=== PATIENT | male | born 1960 | race Two or more races ===

== ENCOUNTER 2019-08-19 11:07 | Inpatient (IN) | payer MEDICAID ==
[~2019-08-19] VITALS: Ht 167.6 cm; Wt 68.0 kg
--- NOTE | 2019-08-19 11:18 | NUR ---
"[id number], FROM HOME "C/O WORSENING BACK PAIN" PT AAOX4, -SOB. NAD NOTED, VSS, PENDING M,D EVAL
[2019-08-19] MEDS ORDERED: KETOROLAC TROMETHAMINE INJ 30 MG/ML VIAL IV ONE (11:30)
[2019-08-19] MEDS ORDERED: IV NS 0.9% 1,000 ML BAG IV ONE (11:30)
[2019-08-19 11:41] LABS: BASOPHILS # (AUTO) 0.1 /CMM (0.0-0.2); BASOPHILS % (AUTO) 0.5 % (0.0-2.0); EOSINOPHILS % (AUTO) 0.2 % (0.0-6.0); HEMATOCRIT 40 % (39-51); HEMOGLOBIN 12.9 g/dL (13.5-17.5); LYMPHOCYTES # (AUTO) 1.1 /CMM (0.8-4.8); LYMPHOCYTES % (AUTO) 6.9 % (20.0-44.0); MEAN CORPUSCULAR HGB CONC 33 g/dl (31.0-36.0); MEAN CORPUSCULAR VOLUME 86 fL (80-96); MONOCYTES # (AUTO) 1.6 /CMM (0.1-1.30); MONOCYTES % (AUTO) 9.9 % (2.0-12.0); NEUTROPHILS # (AUTO) 13.6 /CMM (1.8-8.9); NEUTROPHILS % (AUTO) 82.5 % (43.0-81.0); PLATELET COUNT (AUTO) 241 /CMM (150-450); RED BLOOD CELL COUNT(AUTO) 4.57 MIL/uL (4.5-6.0); WHITE BLOOD COUNT (AUTO) 16.4 K/uL (4.3-11.0)
[2019-08-19 11:47] LABS: CALCIUM, SERUM 9.1 mg/dL (8.5-10.1); CREATININE 1.3 mg/dL (0.6-1.3); POTASSIUM 4.6 mmol/L (3.5-5.1)
[2019-08-19] MEDS ORDERED: KETOROLAC TROMETHAMINE 15 MG/ML VIAL ONE (11:49)
[2019-08-19 11:54] LABS: ALBUMIN 3.1 g/dL (3.4-5.0); BILIRUBIN,DIRECT 0.1 mg/dL (0.0-0.2); BILIRUBIN,TOTAL 0.7 mg/dL (0.2-1.0); TOTAL PROTEIN, SERUM 7.2 g/dL (6.4-8.2)
[2019-08-19] MEDS ORDERED: HYDROMORPHONE 1 MG/1 ML DISP.SYRIN ONE (13:12)
[2019-08-19] MEDS ORDERED: ONDANSETRON HCL/PF 4 MG/2 ML VIAL ONE (13:12)
[2019-08-19] MEDS ORDERED: HYDROMORPHONE INJ 2 MG/ML DISP.SYRIN IV ONE (13:30)
[2019-08-19] MEDS ORDERED: ONDANSETRON HCL/PF 4 MG/2 ML VIAL IVP ONE (13:30)
[2019-08-19] MEDS ORDERED: AMLO5TAB9 PO (14:59)
[2019-08-19] MEDS ORDERED: ALLO100T PO (14:59)
[2019-08-19] MEDS ORDERED: LOSA25TA27 PO (14:59)
[2019-08-19] MEDS ORDERED: FERR325T23 PO (14:59)
[2019-08-19] MEDS ORDERED: DIAZEPAM 10 MG TABLET PO ONE (15:00)
--- NOTE | 2019-08-19 15:24 | NUR ---
EPIC PAGED FOR ADMISSION.
--- NOTE | 2019-08-19 15:35 | NUR ---
CALLED FOR BED. WAITING SUPERCALENDER OPERATOR BACK.
--- NOTE | 2019-08-19 15:39 | NUR ---
MD TO MD IN PROGRESS.
[2019-08-19] MEDS ORDERED: DIAZEPAM 5 MG TABLET ONE (15:43)
--- NOTE | 2019-08-19 15:43 | NUR ---
BED ASSIGN 117-1
--- NOTE | 2019-08-19 15:58 | NUR ---
REPORT GIVEN TO ASTON DALTON FOR VIVIANE PT WILL BE TRANSPORTED TO 1ST FLOOR
--- NOTE | 2019-08-19 16:00 | NUR ---
MS RN NOTES ADMISSION RECEIVED PT FROM ER DEPARTMENT KELLI DALTON WITH DIAGNOSIS OF INTRACTABLE BACK PAIN. A/OX4 ROOM AIR 99%. NO SIGNS OF SOB AT THIS MOMENT. RAC #20 IV SITE PATENT FLUSHED WELL. URINE SAMPLE SENT TO [facility] AT THE ADMISSION. PT IS UNABLE TO WALK AND ABLE TO TURN IN BED WITH DISCOMFORT. VITALS ARE 121/67 HR 89 RR20 TEMP 97.5. BED AT THE LOWEST POSITION LOCKED. CALL LIGHT WITHIN REACH.
[2019-08-19 16:05] VITALS: BP 121/67
[2019-08-19] MEDS ORDERED: ONDANSETRON HCL/PF 4 MG/2 ML VIAL IVP PRN (17:00)
[2019-08-19] MEDS ORDERED: MAG HYDROX/AL HYDROX/SIMETH 30 ML UDC PO PRN (17:00)
[2019-08-19] MEDS ORDERED: MAGNESIUM HYDROXIDE 30 ML UDC PO PRN (17:00)
[2019-08-19] MEDS ORDERED: ZOLPIDEM TARTRATE 5 MG TABLET PO PRN (17:00)
[2019-08-19] MEDS ORDERED: Z GUARD REMEDY 2 OZ OINT TP PRN (17:00)
[2019-08-19] MEDS: HYDROMORPHONE INJ 2 MG/ML DISP.SYRIN IV PRN ×2 (18:53→22:15)
--- NOTE | 2019-08-19 19:15 | NUR ---
MS RN NOTES PT IN BED SLEEPING ABLE TO AROUSE AFTER NAME CALLED. ALL NEEDS ATTENDED PAIN MANAGEMENT IMPLEMENTED. NO SIGNS OF DISCOMFORT OR SOB NOTED AT THIS TIME. BED LOCKED AT THE LOWEST POSITION CALL LIGHT WITHIN REACH. IV SITE PATENT AND FLUSHED. ENDORSED TO HEARING THERAPIST NURSE FOR VIVIANE.
--- NOTE | 2019-08-19 22:45 | NUR ---
RECIEVED ASLEEP IN BED RESP EVEN AND UNLBORED. BED IN LOW POSITION BRAKES TITLE DEPARTMENT MANAGER ;IGHT WITHIN REACH
[2019-08-20 00:47] VITALS: BP 131/78
[2019-08-20] MEDS: HYDROMORPHONE INJ 2 MG/ML DISP.SYRIN IV PRN ×4 (01:45→18:32)
[2019-08-20 04:35] VITALS: BP 107/66
[2019-08-20 04:50] LABS: APPEARANCE,URINE Clear (CLEAR); BILIRUBIN,URINE Negative (NEGATIVE); BLOOD, URINE Negative Ery/uL (NEGATIVE); COLOR,URINE Yellow (YELLOW); KETONES,URINE Negative (NEGATIVE); LEUKOCYTE ESTERASE ,URINE Negative (NEGATIVE); NITRITE, URINE Negative (NEGATIVE); PROTEIN,URINE Negative (NEGATIVE); UGLUCOSE Negative (NEGATIVE); UROBILINOGEN,URINE 0.2 EU/dL (0.2)
--- NOTE | 2019-08-20 05:32 | NUR ---
ENDING NOTES: NOTED PAIN GETTING IN AND OUT OF BED HE STATES THE LOWER BACK PAIN IS A PAIN OF 10. MEDICATED X3 THIS 12 HOURS. LAST ODSE 0530. VOIDS IN THE URINAL. RESP EVEN AND UNLABORED. MOVEMENT AND SENSATION IN THE FEET
[2019-08-20 07:23] LABS: BASOPHILS # (AUTO) 0.1 /CMM (0.0-0.2); BASOPHILS % (AUTO) 0.3 % (0.0-2.0); EOSINOPHILS % (AUTO) 0.2 % (0.0-6.0); HEMATOCRIT 37 % (39-51); HEMOGLOBIN 11.9 g/dL (13.5-17.5); LYMPHOCYTES # (AUTO) 1.1 /CMM (0.8-4.8); LYMPHOCYTES % (AUTO) 5.8 % (20.0-44.0); MEAN CORPUSCULAR HGB CONC 32 g/dl (31.0-36.0); MEAN CORPUSCULAR VOLUME 87 fL (80-96); MONOCYTES # (AUTO) 1.7 /CMM (0.1-1.30); MONOCYTES % (AUTO) 9.3 % (2.0-12.0); NEUTROPHILS # (AUTO) 15.6 /CMM (1.8-8.9); NEUTROPHILS % (AUTO) 84.4 % (43.0-81.0); PLATELET COUNT (AUTO) 223 /CMM (150-450); RED BLOOD CELL COUNT(AUTO) 4.24 MIL/uL (4.5-6.0); WHITE BLOOD COUNT (AUTO) 18.5 K/uL (4.3-11.0)
--- NOTE | 2019-08-20 07:32 | NUR ---
MS RN OPENING NOTES Patient received on room air, no sob noted, remains a/o x4. Patient comfortable on his bed at this time with pain under control. Patient states that he has pain on his backside but is tolerable with pain medication. R AC 20 g saline lock at this time. Bed at the lowest setting, call light within reach, side rails up x2.
[2019-08-20 07:40] LABS: ALBUMIN 2.7 g/dL (3.4-5.0); BILIRUBIN,TOTAL 1.1 mg/dL (0.2-1.0); CALCIUM, SERUM 8.6 mg/dL (8.5-10.1); CREATININE 1.2 mg/dL (0.6-1.3); MAGNESIUM 1.9 mg/dL (1.8-2.4); PHOSPHORUS 4.1 mg/dL (2.5-4.9); POTASSIUM 4.6 mmol/L (3.5-5.1); TOTAL PROTEIN, SERUM 6.7 g/dL (6.4-8.2)
[2019-08-20 07:46] LABS: THYROID STIMULATING HORMONE 1.908 uIU/mL (0.358-3.74)
[2019-08-20] MEDS: LOSARTAN POTASSIUM 25 MG TABLET PO SCH (08:20)
[2019-08-20] MEDS: AMLODIPINE BESYLATE 5 MG TABLET PO SCH (08:20)
[2019-08-20] MEDS: FERROUS SULFATE (325 MG) 325 MG/TAB TABLET PO SCH (08:20)
[2019-08-20] MEDS: ALLOPURINOL 100 MG TABLET PO SCH (08:20)
--- NOTE | 2019-08-20 10:15 | NUR ---
RN NOTES Patient taken to MRI at this time
--- NOTE | 2019-08-20 11:40 | NUR ---
RN MS NOTES Patient back from the MRI scan
--- NOTE | 2019-08-20 12:35 | NUR ---
RN NOTES Patient with 100.3 fever, offered patient medications but patient insisted that he does not taking anything at this time. Will offer again later.
--- NOTE | 2019-08-20 12:45 | NUR ---
Social service consult requested by Dr. Meadows due to pt. having no family in [place] to care for him after D/C. Pt. is a 58 year old male who was admitted to [facility] for intractable back pain. LORI and yolande Nelson met with the pt. bedside. Pt. was sitting upright on the bed and appeared to be uncomfortable and in pain. Pt. states he lives with his friend Cheryl at [address] in [place]. [place]. Pt. states it is a studio apartment. Pt. states, his friend helps him out but has been working a lot lately. Pt. states he needs some assistance at home due to being a fall risk. Pt. denies any drug, alcohol and cigarette use. Pt. states he has no family. Pt. to be assessed by PT prior to discharge. Pt. states he will be going back to the aforementioned address when medically cleared. Pt. might need transportation back home. No other social service needs are requested at this time. SW is available, if needed.
[2019-08-20] MEDS: ACETAMINOPHEN 325 MG TABLET PO PRN (15:50)
[2019-08-20 16:00] VITALS: BP 92/58
--- NOTE | 2019-08-20 18:55 | NUR ---
RN MS CLOSING NOTES Patient remains on room air, no sob noted, a/o x4. Patients pain relieved by dilaudid at this time. Back pain around 6-8. Urinal present bedside, R AC 20 g, SL. Bed at the lowest setting, call light within reach, side rails up x2. Will give report to RN bedside for VIVIANE.
--- NOTE | 2019-08-20 19:45 | NUR ---
RN NOTES RECEIVED [id number] AWAKE IN BED, ALERT ORIENTEDX4, COMPLAINTS OF BACK P0AIN 6/10 P0AIN SCALE AT THIS TIME, LAST DILAUDID GIVEN AT 1832 BY AM NURSE ASHLEY, ENCOURAGED PATIENT TO TURN SIDE TO SIDE TOLERATED TO ALLEVIATE PAIN, SAFETY MEASURES IN PLACE, CALL LIGHT WITHIN EASY REACH, BED IN LOW LOCKED POSITION, IV ACCESS ON HIS RIGHT AC G#20 INTACT AND PATENT, URINAL IS AT BEDSIDE, WILL MONITOR ACCORDINGLY.
[2019-08-20 20:25] VITALS: BP 78/42
[2019-08-20] MEDS ORDERED: IV NS 0.9% 1,000 ML IV PRN (20:30)
--- NOTE | 2019-08-20 20:31 | NUR ---
RN NOTES CALLED AND SPOKE TO TEXTILE SUPERVISOR LEVI BUCK, INFORMED HER REGARDING PATIENT'S LOW BP 76/44MMHG - 78/42MMHG, HR 89/MIN, RR20/MIN, TEMP 98.4F. [id number] HAD EPISODE OF TEMP0 100.3F AT 1235, NP0 LEVI ORDERED BLOOD CULTURE, LACTIC ACID, IV NS 1 LITER BOLUS, AND COMPUTED TOMOGRAPHY CHEST ABDOMEN PELVIS WITH CONTRAST, NOTED AND CARRIED OUT. WILL CONTINUE TO MONITOR ACCORDINGLY.
[2019-08-20 21:45] VITALS: BP 95/48
--- NOTE | 2019-08-20 21:45 | NUR ---
RN NOTES I LITER OF IV NS BOLUS DONE. RECHECKED BP 95/48MMHG HR 85/MIN. DENIES ANY PAIN OR DIZZINESS AT THIS TIME, URINAL AT BEDSIDE, SAFETY MEASURES IN P0LACE, WILL CONTINUE TO MONITOR ACCORDINGLY.
[2019-08-20 23:58] VITALS: BP 111/76
--- NOTE | 2019-08-20 23:58 | NUR ---
RN NOTES RECHECKED BP 111/76MMHG, TEMP0 98.4F HR106 RR 20/MIN. SAFETY MEASURES IN PLACE. ALL NEEDS ATTENDED.
[2019-08-21] VITALS: BP 105/47
[2019-08-21] MEDS: ACETAMINOPHEN 325 MG TABLET PO PRN ×3 (00:24→19:32)
[2019-08-21 00:29] VITALS: BP 105/47
--- NOTE | 2019-08-21 00:32 | NUR ---
RN NOTES RECHECKED BP 105/47 MMHG, HR100/MIN, TEMP0 99.0F, C/O BACK PAIN, 5/10 PAIN SCALE. PROVIDED COMFORT, SAFETY MEASURES IN PLACED, WILL MONITOR ACCORDINGLY.
[2019-08-21 04:56] VITALS: BP 84/47
--- NOTE | 2019-08-21 06:48 | NUR ---
RN NOTES ALL NEEDS ATTENDED AND MET, ABLE TO REST AND SLEPT AT INTERVALS, SLEEPING COMFORTABLY AT THIS TIME. CALL LIGHT WITHIN EASY REACH, SAFETY MEASURES IN PLACE,WILL ENDORSE TO AM NURSE FOR CONTINUITY OF CARE.
[2019-08-21 08:00] VITALS: BP 119/75
[2019-08-21] MEDS: FERROUS SULFATE (325 MG) 325 MG/TAB TABLET PO SCH (08:18)
[2019-08-21] MEDS: ALLOPURINOL 100 MG TABLET PO SCH (08:18)
[2019-08-21] MEDS: AMLODIPINE BESYLATE 5 MG TABLET PO SCH (08:19)
[2019-08-21] MEDS: LOSARTAN POTASSIUM 25 MG TABLET PO SCH (08:19)
[2019-08-21] MEDS ORDERED: IV NS 0.9% 250 ML IV ONE (09:29)
[2019-08-21] MEDS ORDERED: CT SWABBABLE VALVE TRANS SET 1 EA INFUS.SET MC ONE (09:29)
[2019-08-21] MEDS ORDERED: IOHEXOL-300 100 ML VIAL IV ONE (09:29)
[2019-08-21 09:48] LABS: BASOPHILS % (AUTO) 0.1 % (0.0-2.0); EOSINOPHILS % (AUTO) 0.1 % (0.0-6.0); HEMATOCRIT 35 % (39-51); HEMOGLOBIN 11.4 g/dL (13.5-17.5); LYMPHOCYTES # (AUTO) 0.5 /CMM (0.8-4.8); LYMPHOCYTES % (AUTO) 2.6 % (20.0-44.0); MEAN CORPUSCULAR HGB CONC 33 g/dl (31.0-36.0); MEAN CORPUSCULAR VOLUME 85 fL (80-96); MONOCYTES # (AUTO) 1.6 /CMM (0.1-1.30); MONOCYTES % (AUTO) 7.6 % (2.0-12.0); NEUTROPHILS # (AUTO) 18.4 /CMM (1.8-8.9); NEUTROPHILS % (AUTO) 89.6 % (43.0-81.0); PLATELET COUNT (AUTO) 207 /CMM (150-450); RED BLOOD CELL COUNT(AUTO) 4.05 MIL/uL (4.5-6.0); WHITE BLOOD COUNT (AUTO) 20.6 K/uL (4.3-11.0)
[2019-08-21] MEDS ORDERED: FEE PK DOSING 1 MIN EA MC ONE (10:09)
--- NOTE | 2019-08-21 11:41 | NUR ---
DR. HASTINGS AWARE OF CT W/ CONTRAST DONE TODAY. "MRI CONTRAST IS NOT THE SAME"
[2019-08-21] MEDS: VANCOMYCIN 1 GM in IV D5W 250 ML IV SCH ×2 (11:52→22:50)
[2019-08-21] MEDS: HYDROCODONE/APAP 5/325MG 1 EACH TABLET PO PRN (11:55)
[2019-08-21] MEDS: CEFEPIME 2 GM in IV D5W 100 ML IV SCH ×2 (13:28→19:32)
[2019-08-21 16:00] VITALS: BP 112/63
[2019-08-21] MEDS ORDERED: IV NS 0.9% 1,000 ML BAG IV PRN (16:00)
[2019-08-21] MEDS ORDERED: GADOTERIDOL 279.3 MG/ML VIAL IV ONE (16:52)
[2019-08-21] MEDS: HYDROMORPHONE INJ 2 MG/ML DISP.SYRIN IV PRN (17:19)
[2019-08-21] MEDS: IV NS 0.9% 1,000 ML IV PRN (17:21)
--- NOTE | 2019-08-21 19:25 | NUR ---
RN OPENING NOTES RECEIVED PATIENT AWAKE IN BED. PATIENT IS A/O X 4, NO SIGNS OF RESPIRATORY DISTRESS. NO SHORTNESS OF BREATH NOTED. PATIENT COMPLAINS OF BACK PAIN 9/10, BUT PATIENT REFUSES PAIN MEDICATION SUCH DILAUDID AND NORCO. PATIENT STATES HE IS ABLE TO TOLERATE THE PAIN. IV SITE RIGHT AC G#20 INTACT AND PATENT, NO SIGNS OF INFECTION/INFILTRATION, IVF INFUSING WELL. SAFETY PRECAUTIONS IMPLEMENTED; CALL LIGHT WITHIN REACH, BED LOWEST POSITION, BED LOCKED, SIDE RAILS UP X2, BED ALARM ON. WILL CONTINUE TO MONITOR.
--- NOTE | 2019-08-21 19:34 | NUR ---
MS RN CLOSING PATIENT REMAINS A/Ox4. COMPLAINING OF 10/10 BACK PAIN, MEDICATION GIVEN ORDERED. ON ROOM AIR, NO RESPIRATORY DISTRESS NOTED. ABLE TO DANGLE FEET AND WIGGLE TOES. R AC 20G INFUSING NS @80mL/HR.
[2019-08-21 20:00] VITALS: BP 102/57
[2019-08-22] MEDS: CEFEPIME 2 GM in IV D5W 100 ML IV SCH ×3 (02:38→18:16)
[2019-08-22 04:00] VITALS: BP 125/68
[2019-08-22 06:14] LABS: BASOPHILS # (AUTO) 0.1 /CMM (0.0-0.2); BASOPHILS % (AUTO) 0.4 % (0.0-2.0); EOSINOPHILS % (AUTO) 0.1 % (0.0-6.0); HEMATOCRIT 33 % (39-51); HEMOGLOBIN 10.9 g/dL (13.5-17.5); LYMPHOCYTES # (AUTO) 0.8 /CMM (0.8-4.8); LYMPHOCYTES % (AUTO) 3.6 % (20.0-44.0); MEAN CORPUSCULAR HGB CONC 33 g/dl (31.0-36.0); MEAN CORPUSCULAR VOLUME 87 fL (80-96); MONOCYTES # (AUTO) 1.6 /CMM (0.1-1.30); MONOCYTES % (AUTO) 7.8 % (2.0-12.0); NEUTROPHILS # (AUTO) 18.7 /CMM (1.8-8.9); NEUTROPHILS % (AUTO) 88.1 % (43.0-81.0); PLATELET COUNT (AUTO) 218 /CMM (150-450); RED BLOOD CELL COUNT(AUTO) 3.84 MIL/uL (4.5-6.0); WHITE BLOOD COUNT (AUTO) 21.2 K/uL (4.3-11.0)
--- NOTE | 2019-08-22 06:28 | NUR ---
RN CLOSING NOTES PATIENT CURRENTLY ASLEEP, RESTING COMFORTABLY, EASILY AROUSABLE TO VOICE. PATIENT WAS ABLE TO REST, ONLY WOKE UP WHEN NEEDED TO USE THE URINAL. BREATHING EVEN AND UNLABORED. PATIENT REMAINS ON ROOM AIR, NO SHORTNESS OF BREATH NOTED. IV SITE REMAINS INTACT, IVF INFUSING WELL. PATIENT DID NOT ASK FOR PAIN MEDICATION THROUGHOUT THE SHIFT. ALL NEEDS ATTENDED TO AT THIS TIME. SAFETY PRECAUTIONS IMPLEMENTED; CALL LIGHT WITHIN REACH, BED LOWEST POSITION, BED LOCKED, SIDE RAILS UP X2, BED ALARM ON. WILL ENDORSE TO DAYSHIFT NURSE FOR CONTINUITY OF CARE.
[2019-08-22 06:30] LABS: CALCIUM, SERUM 8.5 mg/dL (8.5-10.1); CREATININE 1.4 mg/dL (0.6-1.3); MAGNESIUM 1.9 mg/dL (1.8-2.4); PHOSPHORUS 3.8 mg/dL (2.5-4.9)
--- NOTE | 2019-08-22 07:25 | NUR ---
RN NOTES REPORT GIVEN TO KRYSTLE JEAN-BAPTISTE.
--- NOTE | 2019-08-22 07:29 | NUR ---
MS RN OPENING NOTE RECEIVED PATIENT IN BED SLEEPING COMFORTABLY. PATIENT IN NO ACUTE DISTRESS. NO SOB NOTED. PATIENT BREATHING IS EVEN AND UNLABORED. NO FACIAL GRIMACING NOTED. SAFETY PRECAUTIONS IN PLACE. PATIENT BED IS LOCKED AND IN LOWEST POSITION. CALL LIGHT WITHIN REACH. WILL CONTINUE TO MONITOR.
[2019-08-22] MEDS: FERROUS SULFATE (325 MG) 325 MG/TAB TABLET PO SCH (08:08)
[2019-08-22] MEDS: ALLOPURINOL 100 MG TABLET PO SCH (08:08)
[2019-08-22] MEDS: LOSARTAN POTASSIUM 25 MG TABLET PO SCH (08:08)
[2019-08-22] MEDS: ACETAMINOPHEN 325 MG TABLET PO PRN ×2 (08:08→16:37)
[2019-08-22] MEDS: AMLODIPINE BESYLATE 5 MG TABLET PO SCH (08:09)
[2019-08-22] MEDS: LACTOBACILLUS RHAMNOSUS GG 1 EACH CAP.SPRINK PO SCH ×2 (09:30→16:37)
[2019-08-22] MEDS: VANCOMYCIN 1 GM in IV D5W 250 ML IV SCH ×2 (11:09→22:30)
[2019-08-22] MEDS: IV NS 0.9% 1,000 ML IV PRN (11:17)
[2019-08-22] MEDS: HYDROCODONE/APAP 5/325MG 1 EACH TABLET PO PRN ×2 (14:17→19:19)
--- NOTE | 2019-08-22 16:15 | NUR ---
MS RN NOTE DR. HASTINGS EVALUATED AND SPOKE WITH THE PATIENT. NEW ORDERS FOR ROBAXIN 500 MG TID. WILL FOLLOW UP ORDERS. AND CONTINUE TO MONITOR.
[2019-08-22] MEDS: METHOCARBAMOL (500MG) 500 MG TABLET PO SCH (16:37)
--- NOTE | 2019-08-22 17:30 | NUR ---
MS RN NOTE PATIENT WITH TEMPERATURE OF 101.5 AT 1630, IMPLEMENTED COOLING MEASURES AND TYLENOL GIVEN AT 1637. TEMPERATURE IS NOW 98.9. PATIENT IN NO ACUTE DISTRESS. NO SOB NOTED. WILL CONTINUE TO MONITOR. Addendum: 08/22/19 at 1733 by JERILYN PANIAGUA RN MS RN NOTE PATIENT WITH TEMPERATURE OF 101.5 F AT 1630, IMPLEMENTED COOLING MEASURES AND TYLENOL GIVEN AT 1637. TEMPERATURE IS NOW 98.9 F. PATIENT IN NO ACUTE DISTRESS. NO SOB NOTED. WILL CONTINUE TO MONITOR.
--- NOTE | 2019-08-22 18:49 | NUR ---
MS RN CLOSING NOTE PATIENT IN BED RESTING COMFORTABLY. PATIENT IN NO ACUTE DISTRESS. NO SOB NOTED. PATIENT BREATHING IS EVEN AND UNLABORED. PATIENT SAFETY PRECAUTIONS IN PLACE. PATIENT TEMPERATURE TAKEN AT 98.6 F. PATIENT KEPT CLEAN, DRY, AND COMFORTABLE THROUGHOUT SHIFT. PATIENT IN PAIN AT THIS TIME BUT DOES NOT WANT TO TAKE PAIN MEDICATIONS AT THIS TIME. PATIENT STATES "THE PAIN MEDICATIONS MAKE ME FEEL WEIRD, I WILL WAIT ON THE MEDICATIONS LATER." EXPLAINED THE IMPORTANCE OF MANAGING PAIN, PER PATIENT WILL WAIT. ICE BAGS PROVIDED FOR COMFORT. PATIENT BED IS LOCKED AND IN LOWEST POSITION. CALL LIGHT WITHIN REACH. WILL ENDORSE CARE TO PM SHIFT FOR VIVIANE.
--- NOTE | 2019-08-22 19:05 | NUR ---
MS RN NOTE RECEIVED PT IN STABLE CONDITION A/O X4, CURRENTLY IN BED WATCHING TV. NO SIGNS OF SOB OR DISTRESS, PT STATES PAIN IS TOLERABLE, NO N/V. IV IN R HAND #[address] WITH IVF INFUSING, TOLERATING WELL. ALL CURRENT NEEDS ATTENDED TO. BED LOW, LOCKED, UPPER RAILS UP, AND CALL LIGHT WITHIN REACH. WILL CONT TO MONITOR.
[2019-08-22 20:00] VITALS: BP 103/82
[2019-08-23] VITALS: BP 103/83
[2019-08-23] MEDS: HYDROCODONE/APAP 5/325MG 1 EACH TABLET PO PRN ×5 (01:28→21:32)
[2019-08-23] MEDS: IV NS 0.9% 1,000 ML IV PRN (02:49)
[2019-08-23] MEDS: CEFEPIME 2 GM in IV D5W 100 ML IV SCH ×2 (02:52→11:35)
--- NOTE | 2019-08-23 06:24 | NUR ---
MS RN NOTE PT IN STABLE CONDITION A/O X4, CURRENTLY RESTING IN BED. NO SIGNS OF SOB OR DISTRESS, PT STATES PAIN IS TOLERABLE, NO N/V. IV IN R HAND #[address] WITH IVF INFUSING, TOLERATING WELL. ALL CURRENT NEEDS ATTENDED TO. BED LOW, LOCKED, UPPER RAILS UP, AND CALL LIGHT WITHIN REACH. WILL CONT TO MONITOR AND ENDORSE TO NEXT SHIFT FOR VIVIANE.
[2019-08-23 06:57] LABS: CALCIUM, SERUM 8.5 mg/dL (8.5-10.1); CREATININE 1.4 mg/dL (0.6-1.3); POTASSIUM 4.1 mmol/L (3.5-5.1)
--- NOTE | 2019-08-23 07:00 | NUR ---
MS RN OPENING NOTE RECEIVED PATIENT IN BED A/OX4. PATIENT IN NO ACUTE DISTRESS. NO SOB NOTED. PATIENT BREATHING IS EVEN AND UNLABORED. COMPARING OF BACK PAIN. PAIN MED TO BE GIVEN. SAFETY PRECAUTIONS IN PLACE. PATIENT BED IS LOCKED AND IN LOWEST POSITION. CALL LIGHT WITHIN REACH. WILL CONTINUE TO MONITOR.
[2019-08-23 08:00] VITALS: BP 106/67
[2019-08-23] MEDS: METHOCARBAMOL (500MG) 500 MG TABLET PO SCH ×3 (08:48→16:33)
[2019-08-23] MEDS: LOSARTAN POTASSIUM 25 MG TABLET PO SCH (08:49)
[2019-08-23] MEDS: ALLOPURINOL 100 MG TABLET PO SCH (08:49)
[2019-08-23] MEDS: COLCHICINE 0.6 MG TABLET PO SCH (08:49)
[2019-08-23] MEDS: LACTOBACILLUS RHAMNOSUS GG 1 EACH CAP.SPRINK PO SCH ×2 (08:49→16:33)
[2019-08-23 08:50] VITALS: BP 106/72
[2019-08-23] MEDS: FERROUS SULFATE (325 MG) 325 MG/TAB TABLET PO SCH (08:50)
[2019-08-23] MEDS: AMLODIPINE BESYLATE 5 MG TABLET PO SCH (08:50)
--- NOTE | 2019-08-23 09:14 | NUR ---
MS RN NOTE PATIENT COMPLAINS OF PAIN 10 OUT OF 10, SHAKING AND MOANING. NARCO GIVEN. WILL ASSESS.
[2019-08-23 11:15] LABS: BASOPHILS # (AUTO) 0.1 /CMM (0.0-0.2); BASOPHILS % (AUTO) 0.3 % (0.0-2.0); EOSINOPHILS % (AUTO) 0.2 % (0.0-6.0); HEMATOCRIT 32 % (39-51); HEMOGLOBIN 10.2 g/dL (13.5-17.5); LYMPHOCYTES # (AUTO) 0.4 /CMM (0.8-4.8); LYMPHOCYTES % (AUTO) 2.4 % (20.0-44.0); MEAN CORPUSCULAR HGB CONC 32 g/dl (31.0-36.0); MEAN CORPUSCULAR VOLUME 87 fL (80-96); MONOCYTES # (AUTO) 1.3 /CMM (0.1-1.30); MONOCYTES % (AUTO) 7.6 % (2.0-12.0); NEUTROPHILS # (AUTO) 15.1 /CMM (1.8-8.9); NEUTROPHILS % (AUTO) 89.5 % (43.0-81.0); PLATELET COUNT (AUTO) 237 /CMM (150-450); RED BLOOD CELL COUNT(AUTO) 3.63 MIL/uL (4.5-6.0); WHITE BLOOD COUNT (AUTO) 16.9 K/uL (4.3-11.0)
[2019-08-23] MEDS: methylPREDNISolone SOD SUCC 40 MG/ML VIAL IV SCH ×2 (12:17→16:33)
[2019-08-23] MEDS: VANCOMYCIN 0.75 GM in IV D5W 250 ML IV SCH (12:46)
[2019-08-23 16:00] VITALS: BP_SYST 108; BP_SYST 109; BP_DIAS 61; BP_DIAS 75
[2019-08-23] MEDS: CEFTRIAXONE 2 G in IV D5W 100 ML IV SCH (18:11)
--- NOTE | 2019-08-23 19:29 | NUR ---
MS RN CLOSING NOTE PATIENT IN BED RESTING COMFORTABLY. PATIENT IN NO ACUTE DISTRESS. NO SOB NOTED. PATIENT BREATHING IS EVEN AND UNLABORED. NO COMPLAIN OF PAIN AT THIS TIME. ALL NEEDS ATTENDED. SAFETY PRECAUTION IN PLACE. BED IS LOCKED AND IN LOWEST POSITION. CALL LIGHT WITHIN REACH. SIDE RAILS UP X2. ENDORSED CARE TO PM SHIFT FOR VIVIANE.
[2019-08-23 20:00] VITALS: BP 98/59
[2019-08-24] VITALS: BP 100/64
[2019-08-24] MEDS: VANCOMYCIN 0.75 GM in IV D5W 250 ML IV SCH ×2 (00:39→13:38)
[2019-08-24] MEDS: HYDROCODONE/APAP 5/325MG 1 EACH TABLET PO PRN ×5 (02:08→21:47)
[2019-08-24 04:00] VITALS: BP 100/64
[2019-08-24 06:56] LABS: CALCIUM, SERUM 9.3 mg/dL (8.5-10.1); CREATININE 1.3 mg/dL (0.6-1.3); POTASSIUM 4.2 mmol/L (3.5-5.1)
[2019-08-24 08:00] VITALS: BP_SYST 121; BP_SYST 132; BP_DIAS 66; BP_DIAS 78
--- NOTE | 2019-08-24 08:00 | NUR ---
MS RN RECEIVED ON BED,AWAKE,ALERT,ORIENTED X4,NOT IN ANY FORM PF DISTRESS, RESPIRATIONS EVEN AND UNLABORED,NO SOB NOTED, LUNGS ARE CLEAR,ABDOMEN SOFT,POSITIVE BOWELS SOUNDS,DENIES PAIN AT THIS TIME, WILL MONITOR PATIENT'S CONDITION.
--- NOTE | 2019-08-24 08:30 | NUR ---
MS DALTON BREAKFAST SERVED,DUE MEDS GIVEN,TOLERATED WELL.
[2019-08-24] MEDS: METHOCARBAMOL (500MG) 500 MG TABLET PO SCH ×3 (09:18→17:39)
[2019-08-24] MEDS: methylPREDNISolone SOD SUCC 40 MG/ML VIAL IV SCH ×2 (09:18→17:39)
[2019-08-24] MEDS: LACTOBACILLUS RHAMNOSUS GG 1 EACH CAP.SPRINK PO SCH ×2 (09:18→17:39)
[2019-08-24] MEDS: COLCHICINE 0.6 MG TABLET PO SCH (09:19)
[2019-08-24] MEDS: ALLOPURINOL 100 MG TABLET PO SCH (09:19)
[2019-08-24] MEDS: FERROUS SULFATE (325 MG) 325 MG/TAB TABLET PO SCH (09:19)
[2019-08-24] MEDS: AMLODIPINE BESYLATE 5 MG TABLET PO SCH (09:43)
[2019-08-24] MEDS: LOSARTAN POTASSIUM 25 MG TABLET PO SCH (09:43)
[2019-08-24 16:00] VITALS: BP_SYST 100; BP_SYST 132; BP_DIAS 62; BP_DIAS 75
--- NOTE | 2019-08-24 16:26 | NUR ---
MS RN PATIENT REFUSED TO GO BACK TO BED, NO DISTRESS NOTED.
--- NOTE | 2019-08-24 17:00 | NUR ---
MS RN PATIENT'S IV LEAKING, NEW IV SITE INSERTED AT RIGHT FOREARM G20 W/ GOOD VENOUS RETURN.
[2019-08-24] MEDS: CEFTRIAXONE 2 G in IV D5W 100 ML IV SCH (17:39)
[2019-08-24 18:06] LABS: *ANA ANTI-CENTROMERE B AB <0.2 AI (0.0-0.9); *ANA ANTI-DNA(DS) AB, QN <1 IU/mL (0-9); *ANA ANTI-JO-1 <0.2 AI (0.0-0.9); *ANA ANTICHROMATIN ANTIBODY <0.2 AI (0.0-0.9); *ANA RNP ANTIBODIES 0.2 AI (0.0-0.9); *ANA SJOGREN'S ANTI-SS-A <0.2 AI (0.0-0.9); *ANA SJOGREN'S ANTI-SS-B <0.2 AI (0.0-0.9); *ANAANTI-SCLERODERMA-70 AB <0.2 AI (0.0-0.9); *ANASMITH AB <0.2 AI (0.0-0.9)
--- NOTE | 2019-08-24 19:30 | NUR ---
MS RN OPENING NOTE. REPORT RECIEVED FROM AMINTA DALTON. PATIENT SEEN LAYIN IN BED. REVIEWED PAIN MNAGEMENT PLAN WITH PATIENT. REPORTING HIS BACK PAIN IS 4 /10 REVIEWED WHEN HE CAN HAVE NEXT NORCO VERBALIZED UNDERSTANDING. IV TO RFA INFUSING WITH NO S/S OF COMPLICATIONS. BED ALARM AON BED DOWN AND LOCED SRX2 VERBALZIED UNDERSTANDING TO CALL FOR ASSISTANCE NEEDED.
[2019-08-24 20:00] VITALS: BP 108/69
[2019-08-24] MEDS: IV NS 0.9% 1,000 ML IV PRN (21:57)
[2019-08-24 22:08] VITALS: BP 127/70
[2019-08-25] MEDS: VANCOMYCIN 0.75 GM in IV D5W 250 ML IV SCH ×2 (00:06→12:12)
[2019-08-25 04:45] VITALS: BP 141/81
[2019-08-25] MEDS: HYDROCODONE/APAP 5/325MG 1 EACH TABLET PO PRN ×3 (05:02→14:46)
--- NOTE | 2019-08-25 06:05 | NUR ---
RN PM CLOSING NOTE. PATIENT SEEN LAYIN IN BED. REVIEWED PAIN MNAGEMENT PLAN WITH PATIENT. REPORTING HIS BACK PAIN IS 2/10 AFTER HAVING NORCO EARLIER. REVIEWED PAIN MANAGEMENT PLAN AND WHEN HE CAN HAVE NEXT NORCO. PT VERBALIZED UNDERSTANDING. IV TO RFA INFUSING WITH NO S/S OF COMPLICATIONS. BED ALARM ON; BED DOWN AND LOCKED SRX2 VERBALZIED UNDERSTANDING TO CALL FOR ASSISTANCE NEEDED.
--- NOTE | 2019-08-25 07:14 | NUR ---
MS RN OPENING NOTE RECEIVED REPORT FROM [facility] SHIFT NURSE. PT ASLEEP IN BED, ON ROOM AIR, SATURATING WELL, NO SIGNS OF RESPIRATORY DISTRESS NOTED. IV SITE ON RIGHT FOREARM G20 INFUSING NS AT 80ML/HR, NO SIGNS OF INFILTRATION NOTED. BED IN LOW POSITION, LOCKED, CALL LIGHT WITHIN REACH.
[2019-08-25 08:00] VITALS: BP 131/73
[2019-08-25] MEDS: methylPREDNISolone SOD SUCC 40 MG/ML VIAL IV SCH ×2 (08:27→16:16)
[2019-08-25] MEDS: METHOCARBAMOL (500MG) 500 MG TABLET PO SCH ×3 (08:27→16:16)
[2019-08-25] MEDS: LOSARTAN POTASSIUM 25 MG TABLET PO SCH (08:28)
[2019-08-25] MEDS: ALLOPURINOL 100 MG TABLET PO SCH (08:28)
[2019-08-25] MEDS: FERROUS SULFATE (325 MG) 325 MG/TAB TABLET PO SCH (08:28)
[2019-08-25] MEDS: LACTOBACILLUS RHAMNOSUS GG 1 EACH CAP.SPRINK PO SCH ×2 (08:28→16:16)
[2019-08-25] MEDS: AMLODIPINE BESYLATE 5 MG TABLET PO SCH (08:28)
[2019-08-25] MEDS: COLCHICINE 0.6 MG TABLET PO SCH (08:28)
[2019-08-25 08:37] LABS: HIV SCRN 4G wRFX Non Reactive (Non Reactive)
[2019-08-25 12:44] LABS: BASOPHILS % (AUTO) 0.2 % (0.0-2.0); HEMATOCRIT 34 % (39-51); LYMPHOCYTES # (AUTO) 0.5 /CMM (0.8-4.8); LYMPHOCYTES % (AUTO) 3.5 % (20.0-44.0); MEAN CORPUSCULAR HGB CONC 32 g/dl (31.0-36.0); MEAN CORPUSCULAR VOLUME 87 fL (80-96); MONOCYTES # (AUTO) 0.3 /CMM (0.1-1.30); MONOCYTES % (AUTO) 2.2 % (2.0-12.0); NEUTROPHILS # (AUTO) 12.5 /CMM (1.8-8.9); NEUTROPHILS % (AUTO) 94.1 % (43.0-81.0); PLATELET COUNT (AUTO) 333 /CMM (150-450); RED BLOOD CELL COUNT(AUTO) 3.96 MIL/uL (4.5-6.0); WHITE BLOOD COUNT (AUTO) 13.2 K/uL (4.3-11.0)
[2019-08-25 12:53] LABS: CALCIUM, SERUM 8.8 mg/dL (8.5-10.1); CREATININE 1.2 mg/dL (0.6-1.3); POTASSIUM 3.8 mmol/L (3.5-5.1)
[2019-08-25 13:44] LABS: LYMPHOCYTES % (MANUAL) 3 % (16-48); MONOCYTES % (MANUAL) 4 % (0-11.0); NEUTROPHILS % (MANUAL) 93 (42-76)
[2019-08-25] MEDS: IV NS 0.9% 1,000 ML IV PRN (15:25)
[2019-08-25 16:00] VITALS: BP 104/63
[2019-08-25] MEDS: CEFTRIAXONE 2 G in IV D5W 100 ML IV SCH (17:13)
--- NOTE | 2019-08-25 18:21 | NUR ---
MS RN CLOSING NOTE PT AWAKE IN BED, ALERT AND ORIENTED X 4, ON ROOM AIR, SATURATING WELL, NO SIGNS OF RESPIRATORY DISTRESS NOTED. IV SITE ON RIGHT FOREARM G20 INFUSING NS AT 80ML/HR, NO SIGNS OF INFILTRATION NOTED. BED IN LOW POSITION, LOCKED, CALL LIGHT WITHIN REACH. PROVIDED SAFETY AND COMFORT TO PT THROUGHOUT SHIFT, ALL DUE MEDS GIVEN. WILL ENDORSE TO NOC SHIFT NURSE.
--- NOTE | 2019-08-25 19:49 | NUR ---
MS RN NOTE: RECEIVED PT ON BED ALERT AND ORIENTED X3. ABLE TO MAKE NEEDS KNOWN. NO APPARENT DISTRESS NOTED. NO COMPLAINTS OF PAIN OR DISCOMFORT AT THIS TIME. ON ROOM AIR, NO SOB NOTED. IV ON RIGHT FOREARM #20 INTACT AND PATENT, IVF INFUSING WELL. KEPT CLEAN, DRY AND COMFORTABLE. CALL LIGHT PLACED WITHIN REACH. SIDE RAILS UP X2. BED LOCKED AND IN LOWEST POSITION. WILL CONTINUE TO MONITOR PT.
[2019-08-25 20:00] VITALS: BP 113/68
[2019-08-25 20:43] VITALS: BP 113/68
[2019-08-26] VITALS: BP 113/68
[2019-08-26] MEDS: VANCOMYCIN 0.75 GM in IV D5W 250 ML IV SCH ×3 (00:12→23:58)
[2019-08-26 04:00] VITALS: BP 118/68
[2019-08-26] MEDS: IV NS 0.9% 1,000 ML IV PRN (05:36)
[2019-08-26 06:04] VITALS: BP 118/60
--- NOTE | 2019-08-26 06:28 | NUR ---
RN NOTE PATIENT SLEPT WELL DURING NIGHT, PATIENT WAKE UP WITH PAIN 7/10 IN HIS BACK, OFFERED PAIN MEDICATION, PATIENT REFUSED PAIN MEDICATION, PATIENT STATED "I WANT PAIN MEDICATION AFTER BREAKFAST", WILL ENDORSE TO AM SHIFT TO ADMINISTER PAIN MEDICATION AFTER BREAKFAST
[2019-08-26 06:52] LABS: BASOPHILS % (AUTO) 0.3 % (0.0-2.0); HEMATOCRIT 34 % (39-51); HEMOGLOBIN 11.2 g/dL (13.5-17.5); LYMPHOCYTES # (AUTO) 0.8 /CMM (0.8-4.8); LYMPHOCYTES % (AUTO) 7.4 % (20.0-44.0); MEAN CORPUSCULAR HGB CONC 33 g/dl (31.0-36.0); MEAN CORPUSCULAR VOLUME 86 fL (80-96); MONOCYTES # (AUTO) 0.5 /CMM (0.1-1.30); MONOCYTES % (AUTO) 4.2 % (2.0-12.0); NEUTROPHILS # (AUTO) 9.6 /CMM (1.8-8.9); NEUTROPHILS % (AUTO) 88.1 % (43.0-81.0); PLATELET COUNT (AUTO) 352 /CMM (150-450); WHITE BLOOD COUNT (AUTO) 10.9 K/uL (4.3-11.0)
[2019-08-26 07:09] LABS: CALCIUM, SERUM 8.9 mg/dL (8.5-10.1); PHOSPHORUS 3.8 mg/dL (2.5-4.9); POTASSIUM 3.8 mmol/L (3.5-5.1)
[2019-08-26 08:00] VITALS: BP 132/80
--- NOTE | 2019-08-26 08:00 | NUR ---
MS RN OPENING NOTE RECEIVED PT AWAKE IN BED, ON ROOM AIR, SATURATING WELL, NO SIGNS OF RESPIRATORY DISTRESS NOTED. IV SITE ON LT HAND G22 INFUSING NS AT 80ML/HR, C/O BACK PAIN BUT WANTS TO TAKE HIS NORCO PAIN PRN MED AFTER BREAKFAST. NO SIGNS OF INFILTRATION NOTED.BED IN LOW POSITION, LOCKED, CALL LIGHT WITHIN REACH.
[2019-08-26] MEDS: methylPREDNISolone SOD SUCC 40 MG/ML VIAL IV SCH (09:10)
[2019-08-26] MEDS: METHOCARBAMOL (500MG) 500 MG TABLET PO SCH ×3 (09:11→17:24)
[2019-08-26] MEDS: LOSARTAN POTASSIUM 25 MG TABLET PO SCH (09:11)
[2019-08-26] MEDS: LACTOBACILLUS RHAMNOSUS GG 1 EACH CAP.SPRINK PO SCH ×2 (09:11→17:24)
[2019-08-26] MEDS: COLCHICINE 0.6 MG TABLET PO SCH (09:11)
[2019-08-26] MEDS: HYDROCODONE/APAP 5/325MG 1 EACH TABLET PO PRN ×3 (09:11→23:59)
[2019-08-26] MEDS: ALLOPURINOL 100 MG TABLET PO SCH (09:11)
[2019-08-26] MEDS: FERROUS SULFATE (325 MG) 325 MG/TAB TABLET PO SCH (09:11)
[2019-08-26] MEDS: AMLODIPINE BESYLATE 5 MG TABLET PO SCH (10:42)
[2019-08-26 16:00] VITALS: BP 131/75
[2019-08-26] MEDS: CEFTRIAXONE 2 G in IV D5W 100 ML IV SCH (17:18)
--- NOTE | 2019-08-26 18:07 | NUR ---
PT SITTING IN BED WITH NO S/S OF DISTRESS.C/O BACK PAIN -NORCO 5/325 MG PO GIVEN FOR PAIN MGT.PAIN MGT TEACHING AND ITS ADVERSE REACTION GIVEN TO THE PT.WITH ONGOING IVF NS AT 80ML/HR INFUSING WELL.CALL LIGHT PLACED WITHIN REACH.
--- NOTE | 2019-08-26 20:15 | NUR ---
RESTING IN BED. DENIES C/O AT THIS TME. CURRENT IV FLUSHES WITHOUT DIFFICULTY. CALL LIGHT AVAILABLE AND WITHIN REACH. ENCOURAGED TO CALL FOR ASSIST IF NEEDED
[2019-08-27] VITALS: BP 131/75
[2019-08-27 07:13] LABS: BASOPHILS % (AUTO) 0.2 % (0.0-2.0); EOSINOPHILS % (AUTO) 0.2 % (0.0-6.0); HEMATOCRIT 33 % (39-51); HEMOGLOBIN 10.9 g/dL (13.5-17.5); LYMPHOCYTES # (AUTO) 1.5 /CMM (0.8-4.8); LYMPHOCYTES % (AUTO) 15.6 % (20.0-44.0); MEAN CORPUSCULAR HGB CONC 33 g/dl (31.0-36.0); MEAN CORPUSCULAR VOLUME 86 fL (80-96); MONOCYTES # (AUTO) 0.7 /CMM (0.1-1.30); MONOCYTES % (AUTO) 6.7 % (2.0-12.0); NEUTROPHILS # (AUTO) 7.7 /CMM (1.8-8.9); NEUTROPHILS % (AUTO) 77.3 % (43.0-81.0); PLATELET COUNT (AUTO) 307 /CMM (150-450); RED BLOOD CELL COUNT(AUTO) 3.85 MIL/uL (4.5-6.0); WHITE BLOOD COUNT (AUTO) 9.9 K/uL (4.3-11.0)
[2019-08-27 07:28] LABS: CALCIUM, SERUM 8.5 mg/dL (8.5-10.1); CREATININE 1.1 mg/dL (0.6-1.3); MAGNESIUM 1.9 mg/dL (1.8-2.4); PHOSPHORUS 3.7 mg/dL (2.5-4.9); POTASSIUM 4.1 mmol/L (3.5-5.1)
--- NOTE | 2019-08-27 07:53 | NUR ---
RN MS OPENING NOTES Received patient on room air, no sob noted, remains a/o x3. L hand 22 NS @ 80 ml per hour. Denies pain at this time. Patient lying down comfortably on bed at this time. Bed at the lowest setting, call light within reach, side rails up x2.
[2019-08-27 08:00] VITALS: BP 138/67
[2019-08-27] MEDS: predniSONE 20 MG TABLET PO SCH (08:21)
[2019-08-27] MEDS: FERROUS SULFATE (325 MG) 325 MG/TAB TABLET PO SCH (08:21)
[2019-08-27] MEDS: LACTOBACILLUS RHAMNOSUS GG 1 EACH CAP.SPRINK PO SCH ×2 (08:21→16:07)
[2019-08-27] MEDS: METHOCARBAMOL (500MG) 500 MG TABLET PO SCH ×3 (08:21→16:07)
[2019-08-27] MEDS: ALLOPURINOL 100 MG TABLET PO SCH (08:21)
[2019-08-27] MEDS: COLCHICINE 0.6 MG TABLET PO SCH (08:22)
[2019-08-27] MEDS: AMLODIPINE BESYLATE 5 MG TABLET PO SCH (08:22)
[2019-08-27] MEDS: LOSARTAN POTASSIUM 25 MG TABLET PO SCH (08:22)
[2019-08-27] MEDS: VANCOMYCIN 0.75 GM in IV D5W 250 ML IV SCH ×2 (11:49→20:32)
[2019-08-27 16:00] VITALS: BP 96/67
[2019-08-27] MEDS: CEFTRIAXONE 2 G in IV D5W 100 ML IV SCH (17:15)
--- NOTE | 2019-08-27 18:13 | NUR ---
RN CLOSING NOTES Patient remains on room air, no sob noted, patient comfortable on his bed and is able to go to the restroom by himself with minimal assistance. Remains a/o x3 with R wrist NS @ 80ml per hour. Bed at the lowest setting, call light within reach, side rails up x2. Will give report to NOC RN for eric bedside.
[2019-08-27] MEDS: HYDROCODONE/APAP 5/325MG 1 EACH TABLET PO PRN (19:56)
[2019-08-27 20:00] VITALS: BP 117/74
[2019-08-27] MEDS: IV NS 0.9% 1,000 ML IV PRN (20:27)
[2019-08-28 04:00] VITALS: BP 136/82
[2019-08-28 06:39] LABS: BASOPHILS % (AUTO) 0.1 % (0.0-2.0); EOSINOPHILS % (AUTO) 1.4 % (0.0-6.0); HEMATOCRIT 36 % (39-51); HEMOGLOBIN 11.5 g/dL (13.5-17.5); LYMPHOCYTES # (AUTO) 2.4 /CMM (0.8-4.8); LYMPHOCYTES % (AUTO) 24.6 % (20.0-44.0); MEAN CORPUSCULAR HGB CONC 32 g/dl (31.0-36.0); MEAN CORPUSCULAR VOLUME 87 fL (80-96); MONOCYTES # (AUTO) 0.7 /CMM (0.1-1.30); MONOCYTES % (AUTO) 7.3 % (2.0-12.0); NEUTROPHILS # (AUTO) 6.6 /CMM (1.8-8.9); NEUTROPHILS % (AUTO) 66.6 % (43.0-81.0); PLATELET COUNT (AUTO) 412 /CMM (150-450); RED BLOOD CELL COUNT(AUTO) 4.12 MIL/uL (4.5-6.0); WHITE BLOOD COUNT (AUTO) 9.9 K/uL (4.3-11.0)
[2019-08-28 07:01] LABS: CALCIUM, SERUM 8.5 mg/dL (8.5-10.1); CREATININE 1.1 mg/dL (0.6-1.3); MAGNESIUM 1.8 mg/dL (1.8-2.4); PHOSPHORUS 3.6 mg/dL (2.5-4.9); POTASSIUM 3.9 mmol/L (3.5-5.1)
[2019-08-28 07:03] LABS: C-REACTIVE PROTEIN 2.6 mg/dL (0.0-0.9)
--- NOTE | 2019-08-28 07:10 | NUR ---
RN MS OPENING NOTES Received patient on room air, no sob noted, remains a/o x4. L hand 22 NS @ 80 ml per hour. Patient lying down comfortably on bed at this time. Bed at the lowest setting, call light within reach, side rails up x2.
[2019-08-28 08:00] VITALS: BP 121/87
[2019-08-28 09:39] LABS: BAND % (MANUAL) 1 % (0.0-5.0); EOSINOPHILS % (MANUAL) 1 % (0-4); LYMPHOCYTES % (MANUAL) 24 % (16-48); MONOCYTES % (MANUAL) 6 % (0-11.0); NEUTROPHILS % (MANUAL) 68 (42-76)
[2019-08-28] MEDS: METHOCARBAMOL (500MG) 500 MG TABLET PO SCH ×3 (10:04→17:18)
[2019-08-28] MEDS: FERROUS SULFATE (325 MG) 325 MG/TAB TABLET PO SCH (10:05)
[2019-08-28] MEDS: predniSONE 20 MG TABLET PO SCH (10:05)
[2019-08-28] MEDS: COLCHICINE 0.6 MG TABLET PO SCH (10:06)
[2019-08-28] MEDS: LACTOBACILLUS RHAMNOSUS GG 1 EACH CAP.SPRINK PO SCH ×2 (10:06→17:18)
[2019-08-28] MEDS: LOSARTAN POTASSIUM 25 MG TABLET PO SCH (10:07)
[2019-08-28] MEDS: AMLODIPINE BESYLATE 5 MG TABLET PO SCH (10:07)
[2019-08-28] MEDS: ALLOPURINOL 100 MG TABLET PO SCH (10:08)
--- NOTE | 2019-08-28 11:59 | NUR ---
MS RN NOTE DR. MORGAN AT BEDSIDE. ACCORDING TO HIM PATIENT WILL HAVE CERVICAL SURGERY ON Friday08/31/19.
[2019-08-28] MEDS: IV NS 0.9% 1,000 ML IV PRN (12:34)
[2019-08-28] MEDS: VANCOMYCIN 0.75 GM in IV D5W 250 ML IV SCH ×2 (12:35→23:23)
--- NOTE | 2019-08-28 12:38 | NUR ---
RN MS NOTE VANCOMYCIN TROUGH 17 ON 08/27/19. CHECKED WITH PHARMACY AND IT IS SAFE TO GIVE VANCO TODAY.
[2019-08-28 13:17] LABS: IRON, SERUM 37 ug/dl (50-175); TOTAL IRON BINDING CAPACITY 189 ug/dl (250-450)
[2019-08-28] MEDS: HYDROCODONE/APAP 5/325MG 1 EACH TABLET PO PRN (15:14)
[2019-08-28 16:00] VITALS: BP 112/68
[2019-08-28] MEDS: CEFTRIAXONE 2 G in IV D5W 100 ML IV SCH (17:20)
--- NOTE | 2019-08-28 18:59 | NUR ---
MS RN CLOSING NOTE PT AWAKE IN BED, ALERT AND ORIENTED X 4, ON ROOM AIR, SATURATING WELL, NO SIGNS OF RESPIRATORY DISTRESS OR SOB NOTED. IV SITE ON RIGHT FOREARM G20 INFUSING NS AT 80ML/HR, NO SIGNS OF INFILTRATION NOTED. BED IN LOW POSITION, LOCKED, CALL LIGHT WITHIN REACH. PROVIDED SAFETY AND COMFORT TO PT THROUGHOUT SHIFT, ALL DUE MEDS GIVEN. WILL ENDORSE TO PM NURSE FOR VIVIANE.
--- NOTE | 2019-08-28 19:15 | NUR ---
MS RN NOTES RECEIVED PT IN BED AWAKE AND ABLE TO MAKE NEEDS KNOWN. PT A/OX 3. REPARATIONS EVEN AND UNLABORED WITH NO S/S OF ACUTE DISTRESS OR SOB NOTED. PT WITH RFOREARM #20G PATENT AND INTACT INFUSING NS AT 80ML/HR. SAFETY MEASURES IN PLACE WITH BED IN LOWEST LOCKED POSITION WITH SIDE RAILS UP X2. CALL LIGHT WITHIN REACH. WILL CONTINUE TO MONITOR.
[2019-08-28 20:00] VITALS: BP 138/82
[2019-08-29] VITALS: BP 135/79
[2019-08-29 04:00] VITALS: BP 136/79
[2019-08-29] MEDS: IV NS 0.9% 1,000 ML IV PRN ×2 (04:01→23:56)
[2019-08-29 06:51] LABS: BASOPHILS % (AUTO) 0.4 % (0.0-2.0); EOSINOPHILS % (AUTO) 2.1 % (0.0-6.0); HEMATOCRIT 37 % (39-51); LYMPHOCYTES # (AUTO) 2.9 /CMM (0.8-4.8); MEAN CORPUSCULAR HGB CONC 32 g/dl (31.0-36.0); MEAN CORPUSCULAR VOLUME 87 fL (80-96); MONOCYTES # (AUTO) 0.6 /CMM (0.1-1.30); MONOCYTES % (AUTO) 5.2 % (2.0-12.0); NEUTROPHILS # (AUTO) 8.4 /CMM (1.8-8.9); NEUTROPHILS % (AUTO) 68.3 % (43.0-81.0); PLATELET COUNT (AUTO) 478 /CMM (150-450); RED BLOOD CELL COUNT(AUTO) 4.29 MIL/uL (4.5-6.0); WHITE BLOOD COUNT (AUTO) 12.3 K/uL (4.3-11.0)
--- NOTE | 2019-08-29 06:57 | NUR ---
MS RN NOTES PT IN BED ASLEEP BUT EASILY AWOKEN VERBALLY OR BY TOUCH. PT A/O X3 AND ABLE TO MAKE NEEDS KNOWN. PT A/OX 3. REPARATIONS EVEN AND UNLABORED WITH NO S/S OF ACUTE DISTRESS OR SOB NOTED THROUGHOUT SHIFT. PT WITH RFOREARM #20G PATENT AND INTACT INFUSING NS AT 80ML/HR. SAFETY MEASURES IN PLACE WITH BED IN LOWEST LOCKED POSITION WITH SIDE RAILS UP X2. CALL LIGHT WITHIN REACH. WILL ENDORSE TO ONCOMING NURSE FOR VIVIANE.
[2019-08-29 07:06] LABS: CALCIUM, SERUM 8.6 mg/dL (8.5-10.1); MAGNESIUM 1.8 mg/dL (1.8-2.4); PHOSPHORUS 3.5 mg/dL (2.5-4.9); POTASSIUM 4.1 mmol/L (3.5-5.1)
--- NOTE | 2019-08-29 07:10 | NUR ---
RN MS OPENING NOTES RECEIVED REPORT AT BEDSIDE. PATIENT A/O X4. NO SIGN OF RESPIRATION DISTRESS OR SOB AT THIS TIME. DENIES PAIN. IV L WRIST # 22 NS RUNNING @ 80 ML/HR. SAFETY PRECAUTION MAINTAINED. BED LOW AND LOCKED, SIDE RIALS UP X2, CALL LIGHT IN REACH. URINAL AND WALKER AT BEDSIDE. WILL CONT TO MONITOR.
[2019-08-29 08:00] VITALS: BP 149/87
[2019-08-29 08:56] LABS: EOSINOPHILS % (MANUAL) 4 % (0-4); LYMPHOCYTES % (MANUAL) 25 % (16-48); MONOCYTES % (MANUAL) 6 % (0-11.0); MYELOCYTES % 4 % (0-0); NEUTROPHILS % (MANUAL) 61 (42-76)
[2019-08-29] MEDS: LACTOBACILLUS RHAMNOSUS GG 1 EACH CAP.SPRINK PO SCH ×2 (09:14→16:43)
[2019-08-29] MEDS: COLCHICINE 0.6 MG TABLET PO SCH (09:14)
[2019-08-29] MEDS: FERROUS SULFATE (325 MG) 325 MG/TAB TABLET PO SCH (09:14)
[2019-08-29] MEDS: predniSONE 20 MG TABLET PO SCH (09:14)
[2019-08-29] MEDS: ALLOPURINOL 100 MG TABLET PO SCH (09:14)
[2019-08-29] MEDS: LOSARTAN POTASSIUM 25 MG TABLET PO SCH (09:14)
[2019-08-29] MEDS: METHOCARBAMOL (500MG) 500 MG TABLET PO SCH ×3 (09:14→16:43)
[2019-08-29] MEDS: AMLODIPINE BESYLATE 5 MG TABLET PO SCH (09:15)
[2019-08-29 09:36] LABS: C-REACTIVE PROTEIN 1.6 mg/dL (0.0-0.9)
[2019-08-29] MEDS: VANCOMYCIN 0.75 GM in IV D5W 250 ML IV SCH ×2 (12:42→23:52)
--- NOTE | 2019-08-29 12:42 | NUR ---
RN MS NOTE LAST VANCOMYCIN THROUGH WAS 17 ON 08/27/19. CALLED PHARMACY AND THEY CONFIRMED THE ADMINISTRATION OF VANCOMYCIN TODAY.
[2019-08-29 16:00] VITALS: BP_SYST 114; BP_DIAS 84; BP_DIAS 89
[2019-08-29] MEDS: CEFTRIAXONE 2 G in IV D5W 100 ML IV SCH (17:28)
--- NOTE | 2019-08-29 18:47 | NUR ---
MS RN CLOSING NOTE PT AWAKE IN BED, ALERT AND ORIENTED X 4, ON ROOM AIR, SATURATING WELL, NO SIGNS OF RESPIRATORY DISTRESS OR SOB NOTED. IV SITE ON RIGHT FOREARM G20 INFUSING NS AT 80ML/HR, NO SIGNS OF INFILTRATION NOTED. BED IN LOW POSITION, LOCKED, CALL LIGHT WITHIN REACH. PROVIDED SAFETY AND COMFORT TO PT THROUGHOUT SHIFT, ALL DUE MEDS GIVEN. PATIENT WAS ABLE TO AMBULATE SAFELY SEVERAL TIMES. WILL ENDORSE TO PM NURSE FOR VIVIANE.
--- NOTE | 2019-08-29 19:10 | NUR ---
RN OPENING NOTES: PATIENT AWAKE AND VERBALLY RESPONSIVE. A&OX4. DR. HASTINGS (NEUROLOGIST) AT BEDSIDE. NO RESPIRATORY DISTRESS. PATIENT ABLE TO AMBULATE WITH WALKER ASSIST. BED LOCKED AND IN LOWEST POSITION. SAFETY PRECAUTIONS IMPLEMENTED. CALL LIGHT WITHIN REACH. WILL CONT. TO MONITOR.
[2019-08-29] MEDS: HYDROCODONE/APAP 5/325MG 1 EACH TABLET PO PRN (19:41)
[2019-08-29 20:00] VITALS: BP 132/80
--- NOTE | 2019-08-29 20:45 | NUR ---
RN NOTE: PATIENT PICKED UP BY RADIOLOGY VIA WHEELCHAIR FOR CT CERVICAL SPINE WITHOUT CONTRAST AND XR CERVICAL SPINE FLEX EXT.
--- NOTE | 2019-08-29 21:30 | NUR ---
RN NOTE: PATIENT CAME BACK FROM CT IN STABLE CONDITION.
[2019-08-29 23:15] LABS: APPEARANCE,URINE CLEAR (CLEAR); BILIRUBIN,URINE NEGATIVE (NEGATIVE); BLOOD, URINE NEGATIVE Ery/uL (NEGATIVE); COLOR,URINE YELLOW (YELLOW); KETONES,URINE NEGATIVE (NEGATIVE); LEUKOCYTE ESTERASE ,URINE NEGATIVE (NEGATIVE); NITRITE, URINE NEGATIVE (NEGATIVE); PROTEIN,URINE NEGATIVE (NEGATIVE); UGLUCOSE NEGATIVE (NEGATIVE); UROBILINOGEN,URINE 0.2 EU/dL (0.2)
[2019-08-30 04:00] VITALS: BP 126/73
[2019-08-30 06:25] LABS: BASOPHILS % (AUTO) 0.2 % (0.0-2.0); EOSINOPHILS % (AUTO) 1.8 % (0.0-6.0); HEMATOCRIT 37 % (39-51); HEMOGLOBIN 11.9 g/dL (13.5-17.5); LYMPHOCYTES # (AUTO) 2.8 /CMM (0.8-4.8); LYMPHOCYTES % (AUTO) 23.4 % (20.0-44.0); MEAN CORPUSCULAR HGB CONC 33 g/dl (31.0-36.0); MEAN CORPUSCULAR VOLUME 86 fL (80-96); MONOCYTES # (AUTO) 0.5 /CMM (0.1-1.30); MONOCYTES % (AUTO) 4.5 % (2.0-12.0); NEUTROPHILS # (AUTO) 8.3 /CMM (1.8-8.9); NEUTROPHILS % (AUTO) 70.1 % (43.0-81.0); PLATELET COUNT (AUTO) 470 /CMM (150-450); RED BLOOD CELL COUNT(AUTO) 4.25 MIL/uL (4.5-6.0); WHITE BLOOD COUNT (AUTO) 11.9 K/uL (4.3-11.0)
[2019-08-30 06:43] LABS: CALCIUM, SERUM 8.5 mg/dL (8.5-10.1); MAGNESIUM 1.9 mg/dL (1.8-2.4); PHOSPHORUS 3.6 mg/dL (2.5-4.9); POTASSIUM 3.8 mmol/L (3.5-5.1)
--- NOTE | 2019-08-30 07:15 | NUR ---
MS RN NOTE OPENING PATIENT IS SITTING IN BED A/OX4 ON ROOM AIR. NO SOB AND DISCOMFORT NOTED. PATIENT DENIES PAIN AT THIS MOMENT. RIGHT WRIST #22 PATENT NS RUNNING AT 80ML/H. CALL LIGHT WITHIN REACH BED AT THE LOWEST POSITION LOCKED.
--- NOTE | 2019-08-30 07:20 | NUR ---
RN CLOSING NOTES: PATIENT ASLEEP BUT EASILY AWAKENED. BEDSIDE REPORT GIVEN TO AM SHIFT NURSE. NO RESPIRATORY DISTRESS. NO C/O LOWER BACK PAIN. ENDORSED TO AM SHIFT NURSE FOR CONTINUITY OF CARE.
[2019-08-30 08:00] VITALS: BP 134/90
[2019-08-30 08:07] LABS: BAND % (MANUAL) 1 % (0.0-5.0); EOSINOPHILS % (MANUAL) 1 % (0-4); LYMPHOCYTES % (MANUAL) 13 % (16-48); METAMYELOCYTES % 1 % (0-0); MONOCYTES % (MANUAL) 7 % (0-11.0); MYELOCYTES % 1 % (0-0); NEUTROPHILS % (MANUAL) 76 (42-76)
[2019-08-30] MEDS: COLCHICINE 0.6 MG TABLET PO SCH (08:42)
[2019-08-30] MEDS: ALLOPURINOL 100 MG TABLET PO SCH (08:43)
[2019-08-30] MEDS: METHOCARBAMOL (500MG) 500 MG TABLET PO SCH ×3 (08:43→17:10)
[2019-08-30] MEDS: LACTOBACILLUS RHAMNOSUS GG 1 EACH CAP.SPRINK PO SCH ×2 (08:43→17:10)
[2019-08-30] MEDS: LOSARTAN POTASSIUM 25 MG TABLET PO SCH (08:43)
[2019-08-30] MEDS: FERROUS SULFATE (325 MG) 325 MG/TAB TABLET PO SCH (08:43)
[2019-08-30] MEDS: AMLODIPINE BESYLATE 5 MG TABLET PO SCH (08:44)
[2019-08-30 12:00] VITALS: BP 117/67
--- NOTE | 2019-08-30 12:15 | NUR ---
MS RN NOTES CALLED PHARMACY REGARDING VANCOMYCIN THROUGH LEVEL (13), OK TO GIVE THE DOSE.
[2019-08-30] MEDS: VANCOMYCIN 0.75 GM in IV D5W 250 ML IV SCH (12:30)
[2019-08-30] MEDS: HYDROCODONE/APAP 5/325MG 1 EACH TABLET PO PRN ×2 (17:09→23:54)
[2019-08-30] MEDS: IV NS 0.9% 1,000 ML IV PRN (17:15)
[2019-08-30] MEDS: CEFTRIAXONE 2 G in IV D5W 100 ML IV SCH (18:45)
[2019-08-30 20:00] VITALS: BP_SYST 121; BP_SYST 129; BP_DIAS 69
--- NOTE | 2019-08-30 20:00 | NUR ---
RN NOTES RECEIVED PATIENT A/A/OX4.PATIENT IS IN BED ON ROOM AIR. NO SOB AND DISCOMFORT NOTED. PATIENT DENIES PAIN AT THIS MOMENT. RIGHT WRIST #22 PATENT NS RUNNING AT 80ML/H. PATIENT HAS SIGNED CONSENT FOR PROCEDURE BUT DIDN'T HAVE CONSENT FOR NISHANT AND BLOOD TRANSFUSION . PATIENT SIGNED CONSENTS BUT SURGEON WILL TALK TO HIM AND EXPLAIN THE CONSENTS BEFORE PROCEDURE. CHARGE NURSE RAINA NOTIFIED. WILL ENDORSE TO AM RN TO F/U WITH THE SURGEON ON THIS MATTER. CALL LIGHT WITHIN REACH BED AT THE LOWEST, LOCKED POSITION. WILL CONTINUE TO MONITOR PATIENT CLOSELY.
--- NOTE | 2019-08-30 22:00 | NUR ---
RN NOTES NISHANT AND BLOOD TRANSFUSION CONSENTS HAS BEEN SIGNED BY PATIENT AND HE UNDERSTOOD THAT IT IS NOT INFORMED CONSENT AND SURGEON WILL TALK TO HIM ABOUT IT AND EXPLAIN ALL RISKS AND BENEFITS. WILL CONTINUE TO MONITOR PATIENT CLOSELY.
[2019-08-30] MEDS: VANCOMYCIN 1 GM in IV D5W 250 ML IV SCH (23:54)
[2019-08-31 04:00] VITALS: BP 110/67
[2019-08-31 05:11] LABS: BASOPHILS % (AUTO) 0.4 % (0.0-2.0); EOSINOPHILS % (AUTO) 3.1 % (0.0-6.0); HEMATOCRIT 36 % (39-51); HEMOGLOBIN 11.8 g/dL (13.5-17.5); LYMPHOCYTES # (AUTO) 2.6 /CMM (0.8-4.8); LYMPHOCYTES % (AUTO) 29.4 % (20.0-44.0); MEAN CORPUSCULAR HGB CONC 33 g/dl (31.0-36.0); MEAN CORPUSCULAR VOLUME 86 fL (80-96); MONOCYTES # (AUTO) 0.6 /CMM (0.1-1.30); MONOCYTES % (AUTO) 7.4 % (2.0-12.0); NEUTROPHILS # (AUTO) 5.2 /CMM (1.8-8.9); NEUTROPHILS % (AUTO) 59.7 % (43.0-81.0); PLATELET COUNT (AUTO) 466 /CMM (150-450); WHITE BLOOD COUNT (AUTO) 8.7 K/uL (4.3-11.0)
[2019-08-31 05:23] LABS: CALCIUM, SERUM 8.2 mg/dL (8.5-10.1); MAGNESIUM 1.8 mg/dL (1.8-2.4); PHOSPHORUS 4.1 mg/dL (2.5-4.9)
[2019-08-31 06:39] VITALS: BP 110/67
[2019-08-31] MEDS ORDERED: PROPOFOL 100 ML ONE ×3 (07:00→11:24)
[2019-08-31] MEDS ORDERED: MIDAZOLAM HCL 2 MG/2ML VIAL ONE (07:01)
[2019-08-31] MEDS ORDERED: ANESTHESIA TRAY IN PYXIS 1 EA TRAY MC ONE (07:01)
[2019-08-31] MEDS ORDERED: HYDROMORPHONE INJ 2 MG/ML DISP.SYRIN ONE ×2 (07:01→14:00)
[2019-08-31] MEDS ORDERED: ROCURONIUM BROMIDE 50 MG/5 ML ONE (07:02)
--- NOTE | 2019-08-31 07:10 | NUR ---
MS RN OPENING NOTE: RECEIVED PATIENT AWAKE, ALERT AND ORIENTED X4. ON ROOM AIR AND TOLERATING @ 100%. WITH A SCHEDULE FOR BACK SURGERY THIS AM REPORTED BY OUTGOING NURSE, ALL CONSENTS SIGNED HOWEVER PATIENT IS REQUESTING TO SPEAK ONCE MORE TO DOCTOR FOR MORE INFORMATION ABOUT BLOOD TRANSFUSION AND ANESTHESIA. NPO EXCEPT MEDICINES. CONSTANT PAIN REPORTED AT THE SITE WHERE SURGERY WILL BE DONE. BED IN LOW POSITION, LOCKED AND IN SEMI-FOWLERS. CALL LIGHT IN REACH, WILL CONTINUE TO MONITOR PATIENT AND INFORM SURGERY DEPARTMENT OF HIS REQUEST TO SPEAK TO THE DOCTOR.
[2019-08-31] MEDS ORDERED: SEVOFLURANE 250 ML BOTTLE IH ONE (07:48)
--- NOTE | 2019-08-31 07:53 | NUR ---
MS RN NOTE: PATIENT PICKED BY 2 OR STAFF. ALL CONSENTS SIGNED. BELONGINGS AT BEDSIDE. ROOM AIR TOLERATED WELL WITH NO SOB, ACUTE DISTRESS NOTED. VITAL SIGNS WNL. SURGICAL NURSE MADE AWARE OF PATIENT'S REQUEST TO SPEAK TO DOCTOR ABOUT THE TOPIC OF ANESTHESIA AND BLOOD TRANSFUSION BEFORE PROCEDURE.
[2019-08-31 08:00] VITALS: BP 136/73
[2019-08-31] MEDS ORDERED: BACITRACIN ZINC OINT (15 GM) 15 GM TUBE TP ONE (08:14)
[2019-08-31] MEDS ORDERED: BACITRACIN 50000 UNITS/VIAL ONE (08:14)
[2019-08-31] MEDS: COLCHICINE 0.6 MG TABLET PO SCH (10:00)
[2019-08-31] MEDS ORDERED: BUPIVACAINE MPF 0.5% W/EPI INJ 30 ML VIAL ONE (10:00)
[2019-08-31] MEDS: FERROUS SULFATE (325 MG) 325 MG/TAB TABLET PO SCH (10:00)
[2019-08-31] MEDS: LACTOBACILLUS RHAMNOSUS GG 1 EACH CAP.SPRINK PO SCH ×2 (10:00→17:00)
[2019-08-31] MEDS: LOSARTAN POTASSIUM 25 MG TABLET PO SCH (10:00)
[2019-08-31] MEDS: ALLOPURINOL 100 MG TABLET PO SCH (10:00)
[2019-08-31] MEDS: METHOCARBAMOL (500MG) 500 MG TABLET PO SCH ×3 (10:00→17:00)
[2019-08-31] MEDS: AMLODIPINE BESYLATE 5 MG TABLET PO SCH (10:00)
[2019-08-31] MEDS ORDERED: VANCOMYCIN 1 GM VIAL ONE (12:08)
--- NOTE | 2019-08-31 14:45 | NUR ---
MS RN NOTES @1445-PT CAME BACK FROM OR S/P C3-C5 LAMINECTOMY VIA GURNEY.PT IS SLEEPY.HERIBERTO FROM OR GAVE THE REPORT DARLING HASTINGS SURGEON DONE THE SURGERY WITH POST OP ORDERS HAS FRYE CATHETER IS IN PLACE WILL BE TAKE OUT POST OP 1,HEMOVAC IS INPLACE WITH DRESSING ON THE CERVICAL REGION,5ML BLOOD NOTED.VERBALLY GAVE THE REPORT THEY GIVEN THE DILAUDID INJ 0.5MG IV @1420 AND LAST IV VANCOMYCIN 1GM GIVEN @0911.DR DARLING HASTINGS VERBALLY SAID TO HERIBERTO THAT THEY WILL ORDER PHYSICS DEPARTMENT CHAIR LATER WHEN HE COME BACK TO SEE THE PT.VITAL SIGNS CHECKED,STABLE AND IV FLUIDS IS RUNNING.THEY INSERTED IV LINE GAUGE 18 ON RIGHT FA AND G 20 ON LEFT FA.SITE IS CLEAN,DRY AND INTACT.NO INFILTRATION NOTED.NEW ORDERS OF POST OP NOTED AND CARRIED OUT. @1515-HERIBERTO FROM OR CALLED AND SAID SHE CONFIRMED WITH ABOUT PHYSICS DEPARTMENT CHAIR ORDER.SHE SAID THERE IS NO ORDER FOR PHYSICS DEPARTMENT CHAIR YET UNTIL THE DR WILL COME BACK AND SEE THE PT.
[2019-08-31] MEDS ORDERED: DOCUSATE SODIUM 100 MG CAPSULE PO PRN (15:00)
[2019-08-31] MEDS ORDERED: SENNOSIDES 8.6 MG TABLET PO PRN (15:00)
[2019-08-31] MEDS ORDERED: HYDROMORPHONE INJ 0.5 MG/0.5 ML SYRINGE IV PRN (15:00)
[2019-08-31] MEDS ORDERED: HYDROCODONE/APAP 5/325MG 1 EACH TABLET PO PRN (15:00)
[2019-08-31] MEDS: VANCOMYCIN 1 GM in IV D5W 250 ML IV SCH ×2 (15:39→23:57)
[2019-08-31] MEDS: IV NS 0.9% 1,000 ML IV PRN (15:40)
[2019-08-31 15:45] VITALS: BP 132/77
[2019-08-31 16:00] VITALS: BP 129/73
[2019-08-31] MEDS ORDERED: HYDROMORPHONE 1 MG/1 ML DISP.SYRIN IV PRN ×2 (17:17→21:30)
[2019-08-31] MEDS: CEFTRIAXONE 2 G in IV D5W 100 ML IV SCH (17:20)
--- NOTE | 2019-08-31 18:44 | NUR ---
MS RN CLOSING NOTES PT IS LYING ON BED WITH FRYE CATH AND HEMOVAC IN PLACE,DRAINING WELL.ON PAIN10/10.IV PAIN MEDICINES IS GIVEN,CONTINUE TO MONITOR THE PT.IV LINE IS IN PLACE.ON ROOM AIR,TOLERATING WELL.NO SOB AND ACUTE DISTRESS NOTED.RESPIRATION IS EVEN AND NONLABORED.WILL ENDORSE TO INTERIOR SYSTEMS CARPENTER RN FOR VIVIANE.
[2019-08-31 20:00] VITALS: BP 129/68
--- NOTE | 2019-08-31 20:14 | NUR ---
RN OPENING NOTES RECEIVED REPORT FROM JOVAN DALTON. PATIENT A/A/O X4, ABLE TO VERBALIZE NEEDS. SOME LETHARGY NOTED D/T ANESTHESIA FROM S/P LAMINECTOMY BUT EASILY AROUSABLE. BREATHING EVEN & UNLABORED, TOLERATING ROOM AIR. RADIAL PULSES PRESENT. RIGHT FOREARM IV #18 & LEFT FOREARM IV #20 INTACT & PATENT W/ DRESSING CDI & IVF NS INFUSING WELL @ 100 ML/HR. FRYE CATH DRAINING YELLOW URINE. SURGICAL DRESSING ON BACK CLEAN & DRY W/ NO SIGNS OF BLEEDING OR SWELLING NOTED. PATIENT C/O 9/10 PAIN & NORCO TO BE GIVEN REQUESTED BY PATIENT. PER PATIENT, WILL TRY NORCO INSTEAD OF DILAUDID. HEMOVAC ALSO IN PLACE & ACTIVELY SUCTIONING. SAFETY MEASURES MAINTAINED W/ SIDE RAILS UP & BED ALARM ON. CALL LIGHT PLACED WITHIN REACH & INSTRUCTED TO CALL FOR ASSISTANCE. WILL CONTINUE TO MONITOR.
[2019-08-31] MEDS ORDERED: NALOXONE HCL 0.4 MG/ML AMPUL IV PRN (21:30)
[2019-08-31] MEDS ORDERED: ONDANSETRON HCL/PF 4 MG/2 ML VIAL IVP PRN (21:30)
[2019-08-31] MEDS: HYDROCODONE/APAP 5/325MG 1 EACH TABLET PO PRN (21:30)
[2019-09-01] MEDS: HYDROMORPHONE MDV 30 MG in IV NS 0.9% 15 ML, PCA TOTAL VOLUME 1 BAG IV PRN ×3 (00:06)
[2019-09-01] MEDS ORDERED: KEY,NONCONTROL,TO KEEP IN PYXI 1 EA MC ONE ×3 (00:07→22:09)
[2019-09-01] MEDS: IV NS 0.9% 1,000 ML IV PRN ×2 (03:38→17:38)
[2019-09-01 04:00] VITALS: BP 131/74
[2019-09-01 06:31] LABS: BASOPHILS % (AUTO) 0.2 % (0.0-2.0); EOSINOPHILS % (AUTO) 0.3 % (0.0-6.0); HEMATOCRIT 34 % (39-51); LYMPHOCYTES # (AUTO) 1.5 /CMM (0.8-4.8); LYMPHOCYTES % (AUTO) 9.3 % (20.0-44.0); MEAN CORPUSCULAR HGB CONC 33 g/dl (31.0-36.0); MEAN CORPUSCULAR VOLUME 87 fL (80-96); MONOCYTES # (AUTO) 0.9 /CMM (0.1-1.30); MONOCYTES % (AUTO) 5.3 % (2.0-12.0); NEUTROPHILS # (AUTO) 13.7 /CMM (1.8-8.9); NEUTROPHILS % (AUTO) 84.9 % (43.0-81.0); PLATELET COUNT (AUTO) 455 /CMM (150-450); RED BLOOD CELL COUNT(AUTO) 3.89 MIL/uL (4.5-6.0); WHITE BLOOD COUNT (AUTO) 16.1 K/uL (4.3-11.0)
[2019-09-01 07:03] LABS: CALCIUM, SERUM 8.1 mg/dL (8.5-10.1); CREATININE 0.8 mg/dL (0.6-1.3); MAGNESIUM 1.8 mg/dL (1.8-2.4)
--- NOTE | 2019-09-01 07:40 | NUR ---
RN OPENING NOTES RECEIVED IN BED. PATIENT A/A/O X4, ABLE TO VERBALIZE NEEDS. S/P LAMINECTOMY BREATHING EVEN & UNLABORED, TOLERATING ROOM AIR. RIGHT HAND IV #18 & LEFT FOREARM IV #20 INTACT & PATENT W/ DRESSING CDI & IVF NS INFUSING WELL @ 100 ML/HR. FRYE CATH DRAINING YELLOW URINE. SURGICAL DRESSING ON BACK CLEAN & DRY W/ NO SIGNS OF BLEEDING OR SWELLING NOTED. PATIENT C/O 9/10 PAIN & NORCO TO BE GIVEN REQUESTED BY PATIENT. PER PATIENT, WILL TRY NORCO INSTEAD OF DILAUDID BRASS CHASER, RN ASSURED BRASS CHASER IS LOCKED AND FUNCTIONING SETTINGS CHECKED. HEMOVAC ALSO IN PLACE & ACTIVELY SUCTIONING. SAFETY MEASURES MAINTAINED W/ SIDE RAILS UP & BED ALARM ON. CALL LIGHT PLACED WITHIN REACH & INSTRUCTED TO CALL FOR ASSISTANCE. WILL CONTINUE TO MONITOR.
[2019-09-01 08:00] VITALS: BP 128/72
[2019-09-01] MEDS: FERROUS SULFATE (325 MG) 325 MG/TAB TABLET PO SCH (08:51)
[2019-09-01] MEDS: METHOCARBAMOL (500MG) 500 MG TABLET PO SCH ×3 (08:51→17:34)
[2019-09-01] MEDS: LACTOBACILLUS RHAMNOSUS GG 1 EACH CAP.SPRINK PO SCH ×2 (08:51→17:34)
[2019-09-01] MEDS: ALLOPURINOL 100 MG TABLET PO SCH (08:51)
[2019-09-01] MEDS: COLCHICINE 0.6 MG TABLET PO SCH (08:51)
[2019-09-01] MEDS: AMLODIPINE BESYLATE 5 MG TABLET PO SCH (08:52)
[2019-09-01] MEDS: LOSARTAN POTASSIUM 25 MG TABLET PO SCH (08:52)
[2019-09-01] MEDS: HYDROCODONE/APAP 5/325MG 1 EACH TABLET PO PRN ×3 (08:53→17:57)
[2019-09-01] MEDS: VANCOMYCIN 1 GM in IV D5W 250 ML IV SCH ×2 (13:09→23:15)
[2019-09-01 16:00] VITALS: BP_SYST 116; BP_SYST 117; BP_DIAS 69; BP_DIAS 73
[2019-09-01] MEDS: CEFTRIAXONE 2 G in IV D5W 100 ML IV SCH (17:34)
--- NOTE | 2019-09-01 19:15 | NUR ---
RN baylee opening notes Received Pt from morning nurse. Pt is alert and orientedX4. Pt is resting in bed comfortably. Respiration is normal in room air. No nausea or vomiting. No SOB. No S/S of distress noted. IV sites at Right hand # 18 is clean, intact and patent. Surgical dressing is clean, intact and dry. Hemovac is patent, intact and draining serousanguinese. Informed Pt to have cervical collar when ambulate. Pt verbalize understanding. TILE MOLDER pump at the bedside and locked. Repositioned Pt for comfort. Urinal at the bedside. Keep Pt clean, dry and comfortable. Instructed to call for assistance. Safety precautions is maintained. Bed at low position, brakes locked, side rails upX2 and call light is within reach. Will continue to monitor.
--- NOTE | 2019-09-01 19:20 | NUR ---
RN NOTES PATIENT IN BED A/O X4, ABLE TO VERBALIZE NEEDS. S/P LAMINECTOMY BREATHING EVEN & UNLABORED, TOLERATING ROOM AIR. RIGHT HAND IV #18 INTACT & PATENT W/ DRESSING CDI & IVF NS INFUSING WELL @ 100 ML/HR LEFT FOREARM IV REMOVED. FRYE CATH REMOVED ORDERED, PT INSTRUCTED TO USE URINAL AND CALL FOR ASSISTANCE.PATIENT REFUSED PHYSICAL THERAPY TODAY, INSTRUCTED THAT NEED TO HAVE CERVICAL COLLAR ON IF WILL AMBULATE AT BEDSIDE ENDORSED TO ONCOMING RN. SURGICAL DRESSING ON BACK CLEAN & DRY W/ NO SIGNS OF BLEEDING OR SWELLING NOTED. PATIENT C/O 9/10 PAIN & NORCO TO BE GIVEN REQUESTED BY PATIENT. PER PATIENT, WILL TRY NORCO INSTEAD OF DILAUDID RIBBON LAPPER TENDER, RN ASSURED RIBBON LAPPER TENDER IS LOCKED AND FUNCTIONING SETTINGS CHECKED, ASSURED SPO2 MONITOR IS AT BEDSIDE. HEMOVAC EMPTIED NOTED WITH 100 CC IF BLOODY DRAINAGE,ALSO IN PLACE & ACTIVELY SUCTIONING. SAFETY MEASURES MAINTAINED W/ SIDE RAILS UP & BED ALARM ON. CALL LIGHT PLACED WITHIN REACH & INSTRUCTED TO CALL FOR ASSISTANCE. ENDORSED TO NEXT SHIFT FOR CONTINUITY OF CARE.
[2019-09-01 20:00] VITALS: BP 113/60
[2019-09-02] MEDS ORDERED: KEY,NONCONTROL,TO KEEP IN PYXI 1 EA MC ONE (00:09)
[2019-09-02] MEDS: HYDROMORPHONE MDV 30 MG in IV NS 0.9% 15 ML, PCA TOTAL VOLUME 1 BAG IV PRN ×3 (00:16)
[2019-09-02 04:00] VITALS: BP 142/81
[2019-09-02] MEDS: IV NS 0.9% 1,000 ML IV PRN ×2 (05:15→22:42)
--- NOTE | 2019-09-02 07:00 | NUR ---
RN medsurg closing notes Pt is alert and oriented X4. Pt is resting in bed comfortably. Awaken easily. Respiration is normal in room air. No SOB. No nausea or vomiting. No S/S of distress noted. VS is stable. Afebrile. IV sites at R hand#18 is clean, intact, patent and infusing well NS @ 100ml/hr. Surgical dressing is clean, intact and dry. Hemovac is patent, intact and draining 50 ml. MENTAL TESTER at the bedside and locked. Routine meds were given as ordered. Kept Pt clean, dry and warm. All needs met and attended. Safety precautions is maintained all the time. Bed at low position, brakes locked, side rails upx3 and call light is within reach. Will endorse to morning nurse for VIVIANE.
[2019-09-02 07:03] LABS: CALCIUM, SERUM 8.5 mg/dL (8.5-10.1); MAGNESIUM 1.7 mg/dL (1.8-2.4); PHOSPHORUS 3.3 mg/dL (2.5-4.9)
[2019-09-02 07:06] LABS: BASOPHILS % (AUTO) 0.2 % (0.0-2.0); HEMATOCRIT 36 % (39-51); LYMPHOCYTES # (AUTO) 2.1 /CMM (0.8-4.8); LYMPHOCYTES % (AUTO) 17.6 % (20.0-44.0); MEAN CORPUSCULAR HGB CONC 33 g/dl (31.0-36.0); MEAN CORPUSCULAR VOLUME 87 fL (80-96); MONOCYTES # (AUTO) 1.1 /CMM (0.1-1.30); MONOCYTES % (AUTO) 9.6 % (2.0-12.0); NEUTROPHILS # (AUTO) 8.4 /CMM (1.8-8.9); NEUTROPHILS % (AUTO) 71.6 % (43.0-81.0); PLATELET COUNT (AUTO) 416 /CMM (150-450); WHITE BLOOD COUNT (AUTO) 11.8 K/uL (4.3-11.0)
--- NOTE | 2019-09-02 07:10 | NUR ---
MS RN OPENING NOTES RECEIVED PT IN BED, ASLEEP, EASILY AROUSED, A/O X3-4. PRIMARY LANGUAGE IS [place] ISLANDER BUT ABLE TO COMMUNICATE WITH KINYARWANDA. PT TOLERATING RA, WITH NO ACUTE RESPIRATORY DISTRESS NOTED. PT DENIES ANY PAIN OR DISCOMFORT AT THE THIS TIME, PT AWARE HE HAS HUMIDIFIER MAINTENANCE WORKER PUMP/HYDROMORPHONE WITH 0.2MG/10MIN, MAX 1.2 MG AN HOUR. RECEIVED HUMIDIFIER MAINTENANCE WORKER WITH 29.6ML REMAINING. ALSO, PT AWARE OF WEARING CERVICAL COLLAR WHEN GOING TO THE BATHROOM OR WALKING. PT DENIES ANY CONCERNS OR QUESTIONS AT THIS MOMENT. IVF NS AT 100ML/HR TO R HAND G18, INTACT AND FLUID INFUSING WELL. PT KEPT COMFORTABLE. PT'S BED IN LOWEST, LOCKED POSITION WITH SR X3. CALL LIGHT KEPT WITHIN REACH. WILL CONTINUE PLAN OF CARE.
--- NOTE | 2019-09-02 08:10 | NUR ---
MS RN NOTES PT WANTED TO GO TO THE BATHROOM HIMSELF. PT REMINDED THE USE OF CERVICAL COLLAR WHEN WALKING. RN PREPARED AND INSTRUCTED RETURN CLERK FOR CERVICAL COLLAR TO BE IN PLACE WHENEVER PT IS OUT OF BED/WALKING. BUT PT REFUSED TO USE IT AT THIS MOMENT. PT INFORMED ABOUT RISKS AND BENEFITS, STILL INSISTED TO REFUSE. WILL CONTINUE TO MONITOR.
[2019-09-02] MEDS: METHOCARBAMOL (500MG) 500 MG TABLET PO SCH ×3 (08:27→16:34)
[2019-09-02] MEDS: COLCHICINE 0.6 MG TABLET PO SCH (08:27)
[2019-09-02] MEDS: FERROUS SULFATE (325 MG) 325 MG/TAB TABLET PO SCH (08:27)
[2019-09-02] MEDS: ALLOPURINOL 100 MG TABLET PO SCH (08:27)
[2019-09-02] MEDS: LACTOBACILLUS RHAMNOSUS GG 1 EACH CAP.SPRINK PO SCH ×2 (08:27→16:34)
[2019-09-02] MEDS: AMLODIPINE BESYLATE 5 MG TABLET PO SCH (08:28)
[2019-09-02] MEDS: LOSARTAN POTASSIUM 25 MG TABLET PO SCH (08:28)
[2019-09-02] MEDS: HYDROCODONE/APAP 5/325MG 1 EACH TABLET PO PRN (08:35)
--- NOTE | 2019-09-02 08:35 | NUR ---
MS RN NOTES PT REQUESTED FOR NORCO FOR PAIN MEDICINE. PT MADE AWARE HE HAS DILAUDID FARMWORKER GENERAL PUMP IN CASE HE NEEDS PAIN MEDICINE. PT REFUSED TO USE IT AND PREFERS PAIN MEDICINE A PILL. PRN NORCO GIVEN ORDERED WITH PAIN OF 7/10. WILL CONTINUE TO MONITOR PT.
[2019-09-02 09:14] LABS: LYMPHOCYTES % (MANUAL) 14 % (16-48); MONOCYTES % (MANUAL) 3 % (0-11.0); MYELOCYTES % 1 % (0-0); NEUTROPHILS % (MANUAL) 82 (42-76)
[2019-09-02] MEDS: Magnesium 1GM/D5W 100ML PREMIX 100 ML IV SCH ×2 (10:43→11:51)
[2019-09-02] MEDS: VANCOMYCIN 1 GM in IV D5W 250 ML IV SCH (12:32)
[2019-09-02] MEDS: HYDROCODONE/APAP 10/325MG 1 EA TABLET PO PRN ×2 (12:56→21:35)
--- NOTE | 2019-09-02 14:32 | NUR ---
MS RN NOTES PT SEN AND EVALUATED BY HOSPITALIST/HISTORY INSTRUCTOR/LW AT BEDSIDE. MADE AWARE OF PT'S REFUSAL FOR CERVICAL COLLAR AND FOLDING MACHINE OPERATOR PUMP/DILAUDID AND PREFERS PO PAIN MANAGEMENT/NORCO; HISTORY INSTRUCTOR ADVISED TO TELL SURGEON. DR HASTINGS MADE AWARE. AWAITING FOR RESPONSE.
--- NOTE | 2019-09-02 14:53 | NUR ---
MS RN NOTES DR HASTINGS RESPONDED AND NO ORDERS NOTED AT THIS TIME. AWARE OF PT'S REFUSALS OF CERVICAL COLLAR AND PO PAIN MEDICINES, OK WITH IT. CN/SOON MADE AWARE WELL.
[2019-09-02 16:00] VITALS: BP 117/67
--- NOTE | 2019-09-02 17:42 | NUR ---
MS RN NOTES PICC LINE NEWLY INSERTED TO RIGHT BASILIC WITH 35CM.
[2019-09-02] MEDS: CEFTRIAXONE 2 G in IV D5W 100 ML IV SCH (17:53)
--- NOTE | 2019-09-02 18:42 | NUR ---
MS RN CLOSING NOTES PT IN BED, ASLEEP, EASILY AROUSED, A/O X3-4. PRIMARY LANGUAGE IS NORWEGIAN BUT ABLE TO COMMUNICATE WITH UPPER SORBIAN. PT TOLERATING RA, WITH NO ACUTE RESPIRATORY DISTRESS NOTED. PT DENIES ANY PAIN OR DISCOMFORT AT THE THIS TIME. PT REFUSED TO USE STAFFING OPERATIONS MANAGER PUMP/HYDROMORPHONE, HOSPITALIST MADE AWARE AND ADVISED TO KEEP IT FOR NOW. PT PREFERS TO HAVE PO PAIN MED NEEDED INSTEAD. ALSO, CERVICAL COLLAR REFUSED BY PT, SURGEON/DR HASTINGS AWARE AND OKAY WITH IT. IVF NS AT 100ML/HR TO ADDI PICC, INTACT AND FLUID INFUSING WELL. ALL NEEDS AND CARE ATTENDED. PT KEPT COMFORTABLE. PT'S BED IN LOWEST, LOCKED POSITION WITH SR X3. CALL LIGHT KEPT WITHIN REACH. WILL ENDORSE TO INCOMING NIGHT NURSE FOR VIVIANE.
[2019-09-02 20:00] VITALS: BP 128/73
[2019-09-03] VITALS: BP 125/72
[2019-09-03] MEDS: VANCOMYCIN 1 GM in IV D5W 250 ML IV SCH ×3 (00:42→23:31)
[2019-09-03] MEDS ORDERED: KEY,NONCONTROL,TO KEEP IN PYXI 1 EA MC ONE (01:25)
[2019-09-03] MEDS: HYDROMORPHONE MDV 30 MG in IV NS 0.9% 15 ML, PCA TOTAL VOLUME 1 BAG IV PRN ×3 (02:06)
[2019-09-03 06:19] LABS: BASOPHILS % (AUTO) 0.3 % (0.0-2.0); EOSINOPHILS % (AUTO) 1.7 % (0.0-6.0); HEMATOCRIT 37 % (39-51); HEMOGLOBIN 12.1 g/dL (13.5-17.5); LYMPHOCYTES # (AUTO) 1.7 /CMM (0.8-4.8); LYMPHOCYTES % (AUTO) 14.6 % (20.0-44.0); MEAN CORPUSCULAR HGB CONC 33 g/dl (31.0-36.0); MEAN CORPUSCULAR VOLUME 86 fL (80-96); MONOCYTES # (AUTO) 1.5 /CMM (0.1-1.30); NEUTROPHILS # (AUTO) 8.2 /CMM (1.8-8.9); NEUTROPHILS % (AUTO) 70.4 % (43.0-81.0); PLATELET COUNT (AUTO) 372 /CMM (150-450); WHITE BLOOD COUNT (AUTO) 11.7 K/uL (4.3-11.0)
[2019-09-03 06:42] LABS: CALCIUM, SERUM 8.5 mg/dL (8.5-10.1); CREATININE 0.9 mg/dL (0.6-1.3); PHOSPHORUS 3.8 mg/dL (2.5-4.9); POTASSIUM 3.9 mmol/L (3.5-5.1)
--- NOTE | 2019-09-03 07:20 | NUR ---
MS RN OPENING NOTES RECEIVED PT IN BED, AWAKE, A/O X3-4. ON ROOM AIR, NO ACUTE RESPIRATORY DISTRESS OR SOB NOTED. PT COMPLAIN OF PAIN AT THIS TIME, PAIN MED TO BE GIVEN. PT AWARE HE HAS CLASSIFICATION COUNSELOR PUMP/HYDROMORPHONE BUT REFUSING TO USE THAT. HE SAID: "I DON'T LIKE TO USE IT. IT MAKES MY FOOT NUMB IF I USE IT." ALSO, PT AWARE OF WEARING CERVICAL COLLAR WHEN GOING TO THE BATHROOM OR WALKING. ACCORDING TO PHOTOGRAPHIC REPRODUCTION TECHNICIAN NURSE PATIENT DOES NOT USE COLLAR B/C IT IS TOO HARD. POARCH J COLLAR NEEDED TO BE ORDERED. WILL CONTACT DR. SHIRA CASTRO AT 100ML/HR TO R UPPER ARM PICCLINE. PT'S BED IN LOWEST, LOCKED POSITION WITH SR X3. CALL LIGHT KEPT WITHIN REACH. WILL CONTINUE PLAN OF CARE.
[2019-09-03 08:00] VITALS: BP 142/87
[2019-09-03] MEDS: COLCHICINE 0.6 MG TABLET PO SCH (08:26)
[2019-09-03] MEDS: FERROUS SULFATE (325 MG) 325 MG/TAB TABLET PO SCH (08:27)
[2019-09-03] MEDS: ALLOPURINOL 100 MG TABLET PO SCH (08:27)
[2019-09-03] MEDS: LACTOBACILLUS RHAMNOSUS GG 1 EACH CAP.SPRINK PO SCH ×2 (08:27→17:49)
[2019-09-03] MEDS: LOSARTAN POTASSIUM 25 MG TABLET PO SCH (08:27)
[2019-09-03] MEDS: AMLODIPINE BESYLATE 5 MG TABLET PO SCH (08:28)
[2019-09-03] MEDS: METHOCARBAMOL (500MG) 500 MG TABLET PO SCH ×3 (08:28→17:49)
[2019-09-03] MEDS: HYDROCODONE/APAP 10/325MG 1 EA TABLET PO PRN ×4 (08:47→23:11)
[2019-09-03 09:41] LABS: EOSINOPHILS % (MANUAL) 1 % (0-4); LYMPHOCYTES % (MANUAL) 18 % (16-48); MONOCYTES % (MANUAL) 10 % (0-11.0); NEUTROPHILS % (MANUAL) 71 (42-76)
--- NOTE | 2019-09-03 10:42 | NUR ---
MS RN NOTE DR. RADHA MALDONADO. ORDER FOR GALATA J COLLAR IS NEEDED.
--- NOTE | 2019-09-03 10:51 | NUR ---
RN MS NOTE CALLED [facility] AT [phone] TO BRING AGAPITO MARLOW.
--- NOTE | 2019-09-03 11:39 | NUR ---
DR DOE FOR SRUTHI MARLOW FAXED TO [facility] [phone]
[2019-09-03] MEDS: IV NS 0.9% 1,000 ML IV PRN (12:38)
--- NOTE | 2019-09-03 12:42 | NUR ---
MAIMI J COLLAR WAS BROUGHT AND FITS WELL ON PATIENT. PATIENT AGREED TO HAVE IT ON.
[2019-09-03 16:00] VITALS: BP 110/72
[2019-09-03] MEDS: CEFTRIAXONE 2 G in IV D5W 100 ML IV SCH (17:49)
--- NOTE | 2019-09-03 19:58 | NUR ---
MS RN CLOSING NOTE PT AWAKE IN BED, ALERT AND ORIENTED X 4, ON ROOM AIR, SATURATING WELL, NO SIGNS OF RESPIRATORY DISTRESS OR SOB NOTED. BED IN LOW POSITION, LOCKED, CALL LIGHT WITHIN REACH. PROVIDED SAFETY AND COMFORT TO PT THROUGHOUT SHIFT, ALL DUE MEDS GIVEN. PATIENT WAS ABLE TO AMBULATE SAFELY SEVERAL TIMES. ENDORSED TO PM NURSE FOR VIVIANE.
[2019-09-03 20:00] VITALS: BP 125/73
[2019-09-04] MEDS: IV NS 0.9% 1,000 ML IV PRN ×2 (01:13→17:35)
[2019-09-04] MEDS ORDERED: KEY,NONCONTROL,TO KEEP IN PYXI 1 EA MC ONE ×3 (02:47→12:25)
[2019-09-04] MEDS: HYDROCODONE/APAP 10/325MG 1 EA TABLET PO PRN ×3 (03:37→19:42)
[2019-09-04 04:00] VITALS: BP 108/72
[2019-09-04 07:26] LABS: CALCIUM, SERUM 7.5 mg/dL (8.5-10.1); CREATININE 0.8 mg/dL (0.6-1.3); POTASSIUM 3.5 mmol/L (3.5-5.1)
--- NOTE | 2019-09-04 07:27 | NUR ---
RN NOTES PATIENT IN BED RESTING COMFORTABLY. IN NO APPARENT DISTRESS, BREATHING EVEN AND UNLABORED ON ROOM AIR. NORCO 10/325 GIVEN EVERY 4 HOURS FOR PAIN MANAGEMENT. PATIENT DOES NOT WANT TO USE COMPLIANCE QUALITY PERFORMANCE ANALYST. HE SAID HE FELT HE COULD NOT MOVE AND FEELS LIKE BEING PARALYZED. DILAUDID BAG SHOULD HAVE BEEN CHANGED LAST NIGHT AFTER 24HRS, BUT PHARMACY DID NOT LEAVE ANY REPLACEMENT. CALLED [facility] THIS MORNING, SHE WANTS TO KNOW FIRST IF COMPLIANCE QUALITY PERFORMANCE ANALYST WOULD BE DC'D SINCE PATIENT IS NOT USING IT. WOULD NOT SEND A NEW BAG IF IT WILL BE DC'D. CALLED , DR. RAIN, WAITING FOR RESPONSE.
--- NOTE | 2019-09-04 07:30 | NUR ---
MS/RN OPENING NOTES RECEIVED PATIENT IN BED RESTING COMFORTABLY. PATIENT IS ALERT AND ORIENTED X4. NO PAIN OR ACUTE DISTRESS AT THIS TIME. RESPIRATION EVEN AND UNLABORED. SKIN IS DRY WARM TO TOUCH. ACCORDING TO THE PATIENT HE DOES NOT WANT TO USE BOAT OPERATOR. BRUNA FROM PHARMACY AWARE THIS MORNING, SHE WANTS TO KNOW FIRST IF BOAT OPERATOR WOULD BE DC'D SINCE PATIENT IS NOT USING IT. WOULD NOT SEND A NEW BAG IF IT WILL BE DC'D. CALLED DR. BRISEYDA ROSA. STILL AWAITING RESPONSE PER NIGHT NURSE. ALL NEEDS ANTICIPATED. CALL LIGHT WITHIN REACHED. SAFETY MAINTAINED. BED LOCKED AND IN LOWEST POSITION. WILL CONTINUE TO MONITOR CLOSELY.
[2019-09-04 08:00] VITALS: BP 116/69
[2019-09-04] MEDS: METHOCARBAMOL (500MG) 500 MG TABLET PO SCH ×3 (08:26→16:48)
[2019-09-04] MEDS: ALLOPURINOL 100 MG TABLET PO SCH (08:26)
[2019-09-04] MEDS: AMLODIPINE BESYLATE 5 MG TABLET PO SCH (08:27)
[2019-09-04] MEDS: COLCHICINE 0.6 MG TABLET PO SCH (08:27)
[2019-09-04] MEDS: LOSARTAN POTASSIUM 25 MG TABLET PO SCH (08:27)
[2019-09-04] MEDS: LACTOBACILLUS RHAMNOSUS GG 1 EACH CAP.SPRINK PO SCH ×2 (08:27→16:48)
[2019-09-04] MEDS: FERROUS SULFATE (325 MG) 325 MG/TAB TABLET PO SCH (08:27)
[2019-09-04] MEDS: VANCOMYCIN 1 GM in IV D5W 250 ML IV SCH (12:12)
[2019-09-04 16:00] VITALS: BP_SYST 105; BP_SYST 111; BP_DIAS 69; BP_DIAS 71
[2019-09-04] MEDS: CEFTRIAXONE 2 G in IV D5W 100 ML IV SCH (17:04)
[2019-09-04] MEDS: HYDROCODONE/APAP 5/325MG 1 EACH TABLET PO PRN (17:27)
--- NOTE | 2019-09-04 19:20 | NUR ---
MS/RN CLOSING NOTES PATIENT CONTINUES TO REMAIN IN STABLE CONDITION THROUGHOUT THE SHIFT. PROVIDED COMFORT AND SAFETY. D/C WEALTH MANAGEMENT MANAGER PUMP AND WAS WASTED ACCORDINGLY. PAPERS WAS HANDED TO LEI AT THE PHARMACY WITH NO DISCREPANCY. IV ACC ON ADDI INTACT AND PATENT. FLUSHING WELL. NO S/S OF INFECTION OR INFILTRATION. ALL NEEDS ANTICIPATED. CALL LIGHT WITHIN REACHED. SAFETY MAINTAINED. BED LOCKED AND IN LOWEST POSITION. WILL CONTINUE TO MONITOR CLOSELY. ENDORSED TO PM NURSE FOR VIVIANE.
--- NOTE | 2019-09-04 21:41 | NUR ---
RN NOTE PT AWAKE IN BED, ALERT AND ORIENTED X 4, ON ROOM AIR, SATURATING WELL, NO SIGNS OF RESPIRATORY DISTRESS OR SOB NOTED. BED IN LOW POSITION, LOCKED, CALL LIGHT WITHIN REACH. PATIENT WAS ABLE TO AMBULATE SAFELY SEVERAL TWILL CONTINUE TO TREAT AND MONITOR.
[2019-09-05] VITALS: BP 116/68
[2019-09-05] MEDS: HYDROCODONE/APAP 5/325MG 1 EACH TABLET PO PRN ×3 (03:17→16:34)
[2019-09-05] MEDS: VANCOMYCIN 1 GM in IV D5W 250 ML IV SCH (05:56)
--- NOTE | 2019-09-05 07:10 | NUR ---
RN OPENING NOTE RECEIVED PT IN BED, AWAKE, A/O X4. ON ROOM AIR, NO ACUTE RESPIRATORY DISTRESS OR SOB NOTED. URINAL AT BEDSIDE. NO COMPLAIN OF BED AT THIS TIME. PT'S BED IN LOWEST, LOCKED POSITION WITH SR X3. CALL LIGHT WITHIN REACH. WILL CONTINUE PLAN OF CARE.
[2019-09-05 07:37] LABS: CALCIUM, SERUM 7.4 mg/dL (8.5-10.1); CREATININE 1.2 mg/dL (0.6-1.3); POTASSIUM 3.3 mmol/L (3.5-5.1)
--- NOTE | 2019-09-05 07:54 | NUR ---
RN MS NOTE LAB CALLED, BS [id number]. RADHA MALDONADO.
[2019-09-05 08:00] VITALS: BP 111/74
--- NOTE | 2019-09-05 08:11 | NUR ---
PAGED RADHA Boo AGAIN REGARDING PATIENT BS [id number].
--- NOTE | 2019-09-05 08:19 | NUR ---
RADHA Boo JUST REPLIED BACK ANS SAID SHE IS ROUNDING AND WILL SEE THE PATIENT.
[2019-09-05] MEDS: METHOCARBAMOL (500MG) 500 MG TABLET PO SCH ×3 (08:35→16:33)
[2019-09-05] MEDS: COLCHICINE 0.6 MG TABLET PO SCH (08:35)
[2019-09-05] MEDS: FERROUS SULFATE (325 MG) 325 MG/TAB TABLET PO SCH (08:36)
[2019-09-05] MEDS: AMLODIPINE BESYLATE 5 MG TABLET PO SCH (08:36)
[2019-09-05] MEDS: LOSARTAN POTASSIUM 25 MG TABLET PO SCH (08:36)
[2019-09-05] MEDS: LACTOBACILLUS RHAMNOSUS GG 1 EACH CAP.SPRINK PO SCH ×2 (08:37→16:33)
[2019-09-05] MEDS: ALLOPURINOL 100 MG TABLET PO SCH (08:37)
[2019-09-05] MEDS ORDERED: INSULIN REGULAR, HUMAN 100 UNIT/ML 3 ML VIAL SQ PRN (09:30)
[2019-09-05] MEDS ORDERED: DEXTROSE 50%-WATER 50 ML DISP.SYRIN IV PRN (09:30)
--- NOTE | 2019-09-05 09:37 | NUR ---
RADHA Boo AT BEDSIDE. PT BS 154. SHE SAID: ''WE DO NOT NEED TO COVER SLIDING SCALE NOW. PT GOT IV MEDICATION WITH DEXTROSE THIS MORNING AND THAT IS THE REASON FOR HIGH BS.'' WILL CHECK BS AGAIN.
[2019-09-05] MEDS ORDERED: POTASSIUM CHLORIDE 20 MEQ TAB.PRT.SR PO SCH (10:00)
[2019-09-05] MEDS: POTASSIUM CHLORIDE 20 MEQ TAB.PRT.SR PO SCH ×2 (10:19→11:27)
[2019-09-05] MEDS: BLOOD SUGAR DIAGNOSTIC 1 EACH STRIP IN SCH ×3 (12:45→22:00)
[2019-09-05 16:00] VITALS: BP 123/69
[2019-09-05] MEDS ORDERED: METH500T6 PO (16:34)
[2019-09-05] MEDS ORDERED: DOCU-270 PO (16:34)
[2019-09-05] MEDS ORDERED: Colchicine PO (16:34)
[2019-09-05] MEDS ORDERED: RXVAN XX (16:34)
[2019-09-05] MEDS ORDERED: Hydrocodone/Apap 10/325MG PO (16:34)
[2019-09-05] MEDS ORDERED: HYDR-3972 PO (16:34)
[2019-09-05] MEDS ORDERED: MAGN400O6 PO (16:34)
[2019-09-05] MEDS ORDERED: CEFT2VIA14 IV (16:34)
[2019-09-05] MEDS ORDERED: LACT1CAP72 PO (16:34)
--- NOTE | 2019-09-05 16:34 | NUR ---
RN MS NOTE PATIENT COMPLAINING OF PAIN 8 OUT OF 10 BUR REFUSED NARCO 10 AND HE IS ASKING FOR NARCO 5. HE SAID:'NARCO 10 IS TOO MUCH FOR ME."
--- NOTE | 2019-09-05 16:58 | NUR ---
RN MS NOTE PATIENT WANTED TO GO TO THE BATHROOM. BED TELLEZ OFFERED BY THE NURSE AND SACK CLEANER BUT PATIENT REFUSED AND SAID: "GRAB ME A WHEELCHAIR AND GET ME TH THE BATHROOM. I CAN WALK EVEN WALK WITH MY WALKER.'' RISK FACTORS EXPLAINED BUT PATIENT STILL REFUSED BED TELLEZ AND WANTED TO GO TO THE BATHROOM FOR BOWEL MOVEMENT. Addendum: 09/05/19 at 2016 by YASMIN QUEEN RN NURSE TOOK THE PATIENT TO THE BATHROOM.
--- NOTE | 2019-09-05 17:13 | NUR ---
PATIENT REFUSING PAIN MEDICATION AT THIS TIME AND HE SAID: " I CAN TOLERATE THE PAIN NOW." HE ADDED: "IT IS NOT ANYONE FAULT THAT I FELL. I HAVE FELL MILLION TIMES AT HOME. WHEN I HAVE PAIN I FALL AND IT IS NORMAL FOR ME." NIGEL WAS EDUCATED REGARDING FALL RISK FACTORS BUT STILL SAID: ''I AM OK TO WALK TO THE BATHROOM IF I NEED.'' WILL DO EDUCATION REINFORCEMENT.
--- NOTE | 2019-09-05 17:29 | NUR ---
RN MS NOTE PATIENT JUST FALL WHILE TRANSFERRING FROM THE WHEELCHAIR TO THE BED. X RAY TECHNOLOGIST TOOK THE PATIENT FROM THE BATHROOM WHILE SITTING ON THE WHEELCHAIR AND UPON TRANSFERRING TO THE BED PATIENT TOLD X RAY TECHNOLOGIST TO REMOVE THE WHEELCHAIR SLOWLY. X RAY TECHNOLOGIST TOLD HIM TO HOLD HIS HAND WHILE TRANSFERRING BUT PATIENT INSISTED TO JUST REMOVE THE WHEELCHAIR AND DO NOT HOLD HIM. PATIENT A/O X4 AND HE SAID I HAD PT EVALVE THIS MORNING AND I CAN WALK A LITTLE BIT. ACCORDING TO PATIENT HE FELT A BAD PAIN ON HIS BACK WHILE TRANSFERRING AND HE FELL. ACCORDING TO THE PT RECOMMENDATION PT COULD TRANSFER AND GAIT X10 FT WITH MINIMUM ASSISTANCE AND ABLE TO INDEPENDENTLY PERFORM LE SEATED EXERCISE.
--- NOTE | 2019-09-05 17:42 | NUR ---
PATIENT TAKEN FOR CT SCAN HEAD AND SPINE WITHOUT CONTRACT. AWARE.
--- NOTE | 2019-09-05 17:54 | NUR ---
RN MS NOTE PT JUST COME BACK FROM THE CT SCAN. PATIENT WAS OFFERED TO PUT THE DIAPER BUT HE IS REFUSING AND SAID: "I DO NOT WANT TO HAVE DIAPER. I'LL CALL WHENEVER I NEED TO GO TO THE BATHROOM." NURSE EXPLAINED HIM THE RISK FACTORS AND IT IS NOT SAFE FOR HIM TO GO TO THE BATHROOM AT THIS MOMENT. PATIENT AGREED TO HAVE DIAPER. PATIENT STILL HAS PAIN BUT DENIED PAIN MEDICATION. WILL CHECK LATER IF HE WANTS PAIN MEDICATION. PATIENT ON COMFORTABLE POSITION. BED LOW AND LOCKED, SIDE RAILS UPX3, CALL LIGHT WITHIN REACH, BED ALARM ON.
--- NOTE | 2019-09-05 18:16 | NUR ---
MS RN NOTE PATIENT TRYING TO SIT IN THE BED AND BED ALARM WENT OFF. PATENT GOT MAD WHY THE BED ALARM IS ON. NURSE ALREADY EXPLAINED AND TALK TO HIM NOT TO GET OUT OF THE BED BECAUSE HE MIGHT FALL AGAIN BUT PATIENT SAID: "I DO NOT CARE IF I FALL. I HAVE FELL SO MANY TIMES AT HOME. I DO NOT MIND TO FALL AND HIT MY HEAD." HE ALSO ASKED TO REMOVE THE DIAPER AND SAID I DO NOT HAVE DIAPER ON. PATIENT IS TOTALLY ALERT AND ORIENTED X4 AND REFUSING PAIN MEDICATION AT THIS TIME.
--- NOTE | 2019-09-05 18:45 | NUR ---
PATIENT WAS EDUCATED REGARDING FALL PRECAUTION BUT HE IS REFUSING PAIN MEDICATION, DIAPER AND BED TELLEZ. HE SAID: '' I DO NOT MIND FALLING AGAIN. IT HAPPENS A LOT TO ME AND IT IS NORMAL." PATIENT MADE AWARE ABOUT THE CT SCAN RESULT (NO FRACTURE, NO HEMORRHAGE). PATIENT SAID: "I HAVE A STRONG HEAD, NOTHING HAPPENS TO ME."
--- NOTE | 2019-09-05 18:46 | NUR ---
DR. HASTINGS (NEURO SERGON) AND RAHDA HERNANDEZ MADE AWARE ABOUT THE CT SCAN RESULT.
[2019-09-05] MEDS: CEFTRIAXONE 2 G in IV D5W 100 ML IV SCH (18:53)
[2019-09-05 19:44] LABS: APPEARANCE,URINE CLEAR (CLEAR); BILIRUBIN,URINE NEGATIVE (NEGATIVE); BLOOD, URINE NEGATIVE Ery/uL (NEGATIVE); COLOR,URINE YELLOW (YELLOW); KETONES,URINE NEGATIVE (NEGATIVE); LEUKOCYTE ESTERASE ,URINE NEGATIVE (NEGATIVE); NITRITE, URINE NEGATIVE (NEGATIVE); PROTEIN,URINE NEGATIVE (NEGATIVE); UGLUCOSE NEGATIVE (NEGATIVE); UROBILINOGEN,URINE 0.2 EU/dL (0.2)
[2019-09-05 21:14] LABS: EOSINOPHIL,URINE None Seen
--- NOTE | 2019-09-05 21:14 | NUR ---
RN CLOSING NOTE PATIENT RESTING COMFORTABLY AT BED, ALERT/ORIENTED X4, STILL DENIED PAIN MEDICATION. FALL PRECAUTION REINFORCED. SAFETY MEASURE IN PLACE. BED LOW, LOCKED, SIDE RIALS UP X3, 2 URINAL AT BEDSIDE. ENDORSED TO THE PM NURSE ADRIEL PAN.
--- NOTE | 2019-09-06 | NUR ---
pt recieved awake alert and oriented x4 . pt was medicated with norco 5/325mg. vital sign stable . pt have heplock 22g . pt ensulted to stay in bad.not t to to get out of bed without assist.
[2019-09-06] MEDS: HYDROCODONE/APAP 5/325MG 1 EACH TABLET PO PRN ×4 (01:29→20:43)
[2019-09-06 02:41] VITALS: BP 123/68
--- NOTE | 2019-09-06 04:00 | NUR ---
pt verbalized that he has no pain . harshad patent . pt for pt eval . pt remain stable .
[2019-09-06 07:03] LABS: BASOPHILS # (AUTO) 0.1 /CMM (0.0-0.2); BASOPHILS % (AUTO) 0.8 % (0.0-2.0); EOSINOPHILS % (AUTO) 2.1 % (0.0-6.0); HEMATOCRIT 31 % (39-51); HEMOGLOBIN 10.3 g/dL (13.5-17.5); LYMPHOCYTES # (AUTO) 1.5 /CMM (0.8-4.8); LYMPHOCYTES % (AUTO) 16.8 % (20.0-44.0); MEAN CORPUSCULAR HGB CONC 33 g/dl (31.0-36.0); MEAN CORPUSCULAR VOLUME 86 fL (80-96); MONOCYTES # (AUTO) 1.3 /CMM (0.1-1.30); MONOCYTES % (AUTO) 14.4 % (2.0-12.0); NEUTROPHILS # (AUTO) 5.8 /CMM (1.8-8.9); NEUTROPHILS % (AUTO) 65.9 % (43.0-81.0); PLATELET COUNT (AUTO) 289 /CMM (150-450); RED BLOOD CELL COUNT(AUTO) 3.62 MIL/uL (4.5-6.0); WHITE BLOOD COUNT (AUTO) 8.8 K/uL (4.3-11.0)
--- NOTE | 2019-09-06 07:15 | NUR ---
RN MS OPENING NOTE RECEIVED REPORT FROM NOC SHIFT NURSE. PT AWAKE IN BED, ALERT AND ORIENTED X 4, ON ROOM AIR, SATURATING WELL, NO SIGNS OF RESPIRATORY DISTRESS NOTED, RESPIRATIONS EVEN AND UNLABORED. RIGHT UPPER ARM PICC LINE INTACT, PATENT. FALL PRECAUTIONS IN PLACE, BED IN LOW POSITION, LOCKED, CALL LIGHT WITHIN REACH.
[2019-09-06 07:27] LABS: THYROID STIMULATING HORMONE 2.355 uIU/mL (0.358-3.74); URIC ACID 6.3 mg/dL (2.6-7.2)
[2019-09-06 07:30] LABS: CALCIUM, SERUM 8.5 mg/dL (8.5-10.1); CREATININE 0.9 mg/dL (0.6-1.3); MAGNESIUM 1.9 mg/dL (1.8-2.4); PHOSPHORUS 4.4 mg/dL (2.5-4.9)
[2019-09-06] MEDS: BLOOD SUGAR DIAGNOSTIC 1 EACH STRIP IN SCH ×4 (07:41→22:36)
[2019-09-06 08:00] VITALS: BP 126/69
[2019-09-06] MEDS: FERROUS SULFATE (325 MG) 325 MG/TAB TABLET PO SCH (08:11)
[2019-09-06] MEDS: METHOCARBAMOL (500MG) 500 MG TABLET PO SCH ×3 (08:11→16:50)
[2019-09-06] MEDS: COLCHICINE 0.6 MG TABLET PO SCH (08:11)
[2019-09-06] MEDS: ALLOPURINOL 100 MG TABLET PO SCH (08:11)
[2019-09-06] MEDS: LACTOBACILLUS RHAMNOSUS GG 1 EACH CAP.SPRINK PO SCH ×2 (08:11→16:50)
[2019-09-06] MEDS: AMLODIPINE BESYLATE 5 MG TABLET PO SCH (08:13)
[2019-09-06 16:00] VITALS: BP 111/61
[2019-09-06] MEDS: CEFTRIAXONE 2 G in IV D5W 100 ML IV SCH (17:43)
[2019-09-06] MEDS: VANCOMYCIN 1 GM in IV D5W 250 ML IV SCH ×3 (18:14)
--- NOTE | 2019-09-06 19:20 | NUR ---
RN MS CLOSING NOTE PT AWAKE IN BED, ALERT AND ORIENTED X 4, ON ROOM AIR, SATURATING WELL, NO SIGNS OF RESPIRATORY DISTRESS NOTED, RESPIRATIONS EVEN AND UNLABORED. RIGHT UPPER ARM PICC LINE INTACT, PATENT, INFUSING VANCOMYCIN, NO SIGNS OF INFILTRATION NOTED. NO SIGNS OF INFECTION ON ANSELMO SITE ON POSTERIOR NECK. FALL PRECAUTIONS IN PLACE, BED IN LOW POSITION, LOCKED, CALL LIGHT WITHIN REACH. ENDORSED TO NOC SHIFT NURSE.
--- NOTE | 2019-09-06 19:50 | NUR ---
RN OPENING NOTES RECEIVED REPORT FROM DAYSHIFT RN. FOUND Pt AWAKE, RESTING IN BED. NO S/S OF ACUTE DISTRESS OR SOB NOTED. Pt IS A/O4, VERBAL, ABLE TO MAKE NEEDS KNOWN. IV ACCESS ON ADDI PICC LINE. SAFETY MEASURES IN PLACE. BED LOW, LOCKED, HOB ELEVATED, SIDE RAILS UP, CALL LIGHT AND BEDSIDE TABLE WITHIN REACH. BED ALARM ON. WILL CONTINUE TO MONITOR Pt's CONDITION AND SAFETY THROUGHOUT THE NIGHT.
[2019-09-06 20:00] VITALS: BP 114/66
--- NOTE | 2019-09-06 22:05 | NUR ---
RN NOTES HS ACCUCHECK BG 124. NO INSULIN COVERAGE NEEDED AT THIS TIME.
[2019-09-07] VITALS: BP 114/66
[2019-09-07] MEDS: IV NS 0.9% 1,000 ML IV PRN (05:45)
[2019-09-07] MEDS: HYDROCODONE/APAP 5/325MG 1 EACH TABLET PO PRN (05:58)
[2019-09-07 07:10] LABS: CREATININE 1.1 mg/dL (0.6-1.3)
[2019-09-07] MEDS: BLOOD SUGAR DIAGNOSTIC 1 EACH STRIP IN SCH ×3 (07:30→16:56)
--- NOTE | 2019-09-07 07:36 | NUR ---
RN CLOSING NOTES NO SIGNIFICANT CHANGES IN Pt's CONDITION. Pt IS RESTING COMFORTABLY IN BED, WITH EVEN AND UNLABORED RESPIRATIONS. NO S/S OF ACUTE DISTRESS OR SOB NOTED DURING THE NIGHT. ALL NEEDS MET AND ATTENDED TO. SAFETY MEASURES IN PLACE. WILL ENDORSE TO DAYSHIFT RN FOR Pt's VIVIANE.
[2019-09-07 08:00] VITALS: BP 103/78
[2019-09-07] MEDS: COLCHICINE 0.6 MG TABLET PO SCH (08:28)
[2019-09-07] MEDS: AMLODIPINE BESYLATE 5 MG TABLET PO SCH (08:28)
[2019-09-07] MEDS: FERROUS SULFATE (325 MG) 325 MG/TAB TABLET PO SCH (08:28)
[2019-09-07] MEDS: LACTOBACILLUS RHAMNOSUS GG 1 EACH CAP.SPRINK PO SCH ×2 (08:28→16:51)
[2019-09-07] MEDS: METHOCARBAMOL (500MG) 500 MG TABLET PO SCH ×3 (08:28→16:51)
[2019-09-07] MEDS: HYDROCODONE/APAP 10/325MG 1 EA TABLET PO PRN ×3 (08:29→15:32)
[2019-09-07] MEDS: ALLOPURINOL 100 MG TABLET PO SCH (11:04)
[2019-09-07] MEDS: VANCOMYCIN 1 GM in IV D5W 250 ML IV SCH (13:59)
[2019-09-07 16:00] VITALS: BP 112/63
[2019-09-07] MEDS: CEFTRIAXONE 2 G in IV D5W 100 ML IV SCH (16:52)
--- NOTE | 2019-09-07 19:03 | NUR ---
PATIENT BEING ESCORTED OFF UNIT BY TRANSPORT- PICC LINE SECURED FOR FUTURE USE- REPORT BEEN CALLED TO FACILITY TO [facility]
== END 2019-09-07 20:33 | DRG 710 ==
LOC: ER 11:08 → MEDSG1 15:44
PROVIDERS: ADMIT Internal Medicine; ATTEND Registered Nurse
PROC: 0RB30ZZ Excision of Cervical Vertebral Disc, Open Approach (ICD-10-PCS; principal; 2019-08-30)
PROC: 0RG20A0 Fusion of 2 or more Cervical Vertebral Joints with Interbody Fusion Device, Anterior Approach, Anterior Column, Open Approach (ICD-10-PCS; principal; 2019-08-30)
PROC: 02HV33Z Insertion of Infusion Device into Superior Vena Cava, Percutaneous Approach (ICD-10-PCS; 2019-09-02)
PROC: B548ZZA Ultrasonography of Superior Vena Cava, Guidance (ICD-10-PCS; 2019-09-02)
DX: A41.9 Sepsis, unspecified organism (principal); N17.0 Acute kidney failure with tubular necrosis; M47.22 Other spondylosis with radiculopathy, cervical region; E87.1 Hypo-osmolality and hyponatremia; M48.03 Spinal stenosis, cervicothoracic region; M10.9 Gout, unspecified; Z87.11 Personal history of peptic ulcer disease; D64.9 Anemia, unspecified; K59.00 Constipation, unspecified; Z88.5 Allergy status to narcotic agent; I12.9 Hypertensive chronic kidney disease with stage 1 through stage 4 chronic kidney disease, or unspecified chronic kidney disease; N18.3 Chronic kidney disease, stage 3 (moderate); M48.061 Spinal stenosis, lumbar region without neurogenic claudication; M46.47 Discitis, unspecified, lumbosacral region
CPT/HCPCS: 36415; 70450-TC; 71045-TC; 71260-TC; 72040-TC; 72052-TC; 72125-TC; 72131-TC; 72141-TC; 72146-TC; 72148-TC; 72149-TC; 80048-TC; 80053-TC; 80061-TC; 80076-TC; 80202-TC; 81000-TC; 82570-TC; 82962-TC; 83540-TC; 83605-TC; 83690-TC; 83735-TC; 83935-TC; 84100-TC; 84155-TC; 84300-TC; 84443-TC; 84550-TC; 85025-TC; 85045-TC; 85610-TC; 85652-TC; 85730-TC; 86140-TC; 86225; 86235; 86850-TC; 86880-TC; 87040-TC; 87081-TC; 87086-TC; 97110-TC; 97116-TC; 97530-TC; A4216; A6253; A6403; A6407; A9579; C1751; G0378; J0692; J0696; J1100; J1170; J1815; J1885; J2250; J2405; J2704; J2920; J3370; J3475; J3490; J7030; J7050; J7060; Q9967